=== PATIENT | female | born 1965 | race Caucasian/White ===

== ENCOUNTER → 2019-08-18 | Emergency (ER) | payer MEDICAID, OTHER ==
[~2019-08-18] VITALS: Ht 172.7 cm; Wt 108.9 kg
[2019-08-18 14:02] VITALS: BP 146/90
== END | disposition home or self-care (01) ==
LOC: ER 13:52
DX: J40 Bronchitis, not specified as acute or chronic (principal); R51 Headache; I10 Essential (primary) hypertension
CPT/HCPCS: 36600; 71046; 82805

== ENCOUNTER 2023-10-10 03:57 | Inpatient (IN) | payer MEDICAID ==
[~2023-10-10] VITALS: Ht 170.2 cm; Wt 120.9 kg
[2023-10-10] MEDS: ACETAMINOPHEN 500 MG TAB PO ONE ×2 (04:26→18:53)
[2023-10-10] MEDS: ONDANSETRON HCL 4 MG/2 ML VIAL IV ONE (05:14)
[2023-10-10 06:28] VITALS: PULSE 89; RESP 16; O2SAT 92
[2023-10-10 07:18] LABS: COVID19 ANTIGEN SOFIA FIA NEGATIVE (NEGATIVE); Rapid Influenza A Negative (Negative); Rapid Influenza B Negative (Negative)
[2023-10-10 08:20] LABS: Urine Bacteria None Seen /hpf (None Seen)
[2023-10-10 08:32] LABS: Urine Blood 2+ /uL (Negative); Urine Clarity Clear (Clear); Urine Color Yellow (Yellow); Urine Hyaline Cast FEW /lpf (0 - 2); Urine Mucus FEW (None Seen); Urine Protein, UAD 2+ (Negative); Urine Specific Gravity 1.036 (1.001-1.035); Urine Urobilinogen 2 mg/dL (Negative); Urine WBC 4 /hpf (0 - 5); Urine pH 6.5 (5.0-9.0)
[2023-10-10] MEDS: SODIUM CHLORIDE 0.9% 1,000 ML IVB ONE (11:17)
[2023-10-10 12:36] LABS: Basophils # (auto) 0 10 ^3/uL (0-0.2); Basophils % (auto) 0.3 % (0.0-2.0); Eosinophils # (auto) 0 10 ^3/uL (0-0.8); Hematocrit 40.3 % (36.0-46.0); Hemoglobin 13.9 g/dL (12.2-16.2); Lymphocytes # (auto) 0.6 10 ^3/uL (0.4-5.4); Lymphocytes % (auto) 3.5 % (10.0-50.0); Mean Corpuscular Hemoglobin 32.3 pg (28.0-32.0); Mean Corpuscular Hgb Conc. 34.4 g/dL (32.0-36.0); Mean Corpuscular Volume 93.9 fL (80.0-100.0); Monocytes # (auto) 0.8 10 ^3/uL (0-1.3); Monocytes % (auto) 4.6 % (0.0-12.0); Neutrophils # (auto) 16.1 10 ^3/uL (1.6-8.6); Neutrophils % (auto) 91.6 % (37.0-80.0); Red Blood Cells 4.28 10^6/uL (4.0-5.20); Red Cell Distribution Width 13.5 % (11.8-14.3); White Blood Cell 17.6 10^3/uL (4.4-10.8)
[2023-10-10 12:45] LABS: Chloride 101 mmol/L (98-107); Potassium 3.6 mmol/L (3.5-5.1); Sodium 133 mmol/L (136-145)
[2023-10-10 12:46] LABS: Anion Gap 6 (5-15); Carbon Dioxide 26 mmol/L (20-30)
[2023-10-10 12:47] LABS: Calcium 9.2 mg/dL (8.7-10.4)
[2023-10-10 12:51] LABS: Glucose 114 mg/dL (74-106)
[2023-10-10 12:52] LABS: BUN/Creatinine Ratio 10.3 (10.0-20.0); Blood Urea Nitrogen 8 mg/dL (9-23); Lipase 27 U/L (12-53); Magnesium 1.2 mg/dL (1.6-2.6)
[2023-10-10] MEDS: KETOROLAC TROMETH 30 MG/ML 1ML VIAL IV ONE (13:38)
[2023-10-10] MEDS: MAGNESIUM SULFATE 1GM/100ML 100 ML IV SCH (17:15)
[2023-10-10] MEDS ORDERED: BISM262C44 PO (17:46)
[2023-10-10] MEDS ORDERED: METO-281 PO (17:46)
[2023-10-10 19:30] VITALS: PULSE 88; RESP 22; O2SAT 93
[2023-10-10] MEDS: IPRATROPIUM BROM 0.5 MG/2.5ML INH SOL NEB ONE (20:45)
[2023-10-10] MEDS: ALBUTEROL SULF 2.5 MG/0.5ML(0.5%) NEB SOLN NEB ONE (20:45)
[2023-10-10] MEDS: ALBUTEROL SULF 2.5 MG/0.5ML(0.5%) NEB SOLN ONE (21:03)
[2023-10-10] MEDS: IPRATROPIUM BROM 0.5 MG/2.5ML INH SOL ONE (21:03)
[2023-10-10] MEDS: AZITHROMYCIN 500MG/ 250ML 250 ML IV ONE (22:01)
[2023-10-10] MEDS: PIPERACILLIN-TAZOB 3.375GM 100 ML IV ONE (22:01)
[2023-10-11] VITALS (37 sets, daily range): BP systolic 87–124; BP diastolic 36–71; PULSE 70–107; RESP 15–33; TEMP 98–101.2; O2SAT 75–100
[2023-10-11] MEDS: MELATONIN 5 MG TAB PO PRN (01:28)
[2023-10-11] MEDS: ONDANSETRON HCL 4 MG/2 ML VIAL IV PRN (01:28)
[2023-10-11] MEDS: SODIUM CHLORIDE 0.9% 1,000 ML IV SCH ×2 (01:29→06:04)
[2023-10-11] MEDS: HYDROcodone-ACET 5/325MG TAB PO PRN (01:53)
[2023-10-11 02:41] LABS: Base Excess 0.1 mmol/L (-2.0-2.0)
[2023-10-11] MEDS: ACETAMINOPHEN 325 MG TAB PO PRN (03:23)
[2023-10-11 05:29] LABS: Hematocrit 36.8 % (36.0-46.0); Hemoglobin 12.4 g/dL (12.2-16.2); Mean Corpuscular Hemoglobin 31.4 pg (28.0-32.0); Mean Corpuscular Hgb Conc. 33.8 g/dL (32.0-36.0); Red Blood Cells 3.95 10^6/uL (4.0-5.20); Red Cell Distribution Width 13.3 % (11.8-14.3); White Blood Cell 18.4 10^3/uL (4.4-10.8)
[2023-10-11 05:33] LABS: Chloride 99 mmol/L (98-107); Sodium 130 mmol/L (136-145)
[2023-10-11 05:34] LABS: Anion Gap 8 (5-15); Basophils % (manual) 0 (0.0-2.0); Blast Cells 0; Calcium 8.8 mg/dL (8.7-10.4); Carbon Dioxide 23 mmol/L (20-30); Eosinophils % (manual) 0 (0-7); Metamyelocytes % 0; Myelocytes % 0; Promyelocytes % 0; Reactive Lymphocytes 0
[2023-10-11 05:39] LABS: BUN/Creatinine Ratio 15.3 (10.0-20.0); Blood Urea Nitrogen 15 mg/dL (9-23); Glucose 104 mg/dL (74-106)
[2023-10-11 05:40] LABS: Magnesium 1.4 mg/dL (1.6-2.6)
[2023-10-11] MEDS: IOHEXOL 350 MG/ML 100ML IJ ONE (05:41)
[2023-10-11] MEDS ORDERED: IPRATROPIUM BROM 0.5 MG/2.5ML INH SOL NEB SCH (06:00)
[2023-10-11 06:05] LABS: Band Neutrophils % (manual) 23; Lymphocytes % (manual) 2 (10.0-50.0); Monocytes % (manual) 2 (0-12); Platelet Estimate Adequate; RBC Morphology Normal
[2023-10-11] MEDS: MAGNESIUM SULFATE 1GM/100ML 100 ML IV SCH (06:19)
[2023-10-11] MEDS: ALBUTEROL SULF 2.5 MG/0.5ML(0.5%) NEB SOLN NEB SCH (06:27)
[2023-10-11] MEDS: IPRATROPIUM BROM 0.5 MG/2.5ML INH SOL NEB SCH (06:28)
[2023-10-11] MEDS: POTASSIUM CHL 20MEQ/100ML 100 ML IV SCH (06:34)
[2023-10-11 08:57] LABS: Base Excess -0.9 mmol/L (-2.0-2.0)
[2023-10-11] MEDS: ENOXAPARIN SOD 40 MG/0.4 ML SYRINGE SC SCH (09:44)
[2023-10-11] MEDS: PANTOPRAZOLE 40 MG/10 ML VIAL INJ IV SCH (09:46)
[2023-10-11] MEDS: cefTRIAXone 1GM/50ML D5W 50 ML IV SCH (09:46)
[2023-10-11 10:54] LABS: Amphetamine Screen, Urine Neg (NEGATIVE); Barbiturate Scree,Urine Neg (NEGATIVE); Benzodiazephine Screen, Urine Neg (NEGATIVE)
[2023-10-11 10:56] LABS: Cannabinoid Screen, Urine Neg (NEGATIVE); Cocaine Screen, Urine Neg (NEGATIVE); Opiate Scree,Urine Neg (NEGATIVE); Phencyclidine Screen, Urine Neg (NEGATIVE)
[2023-10-11] MEDS ORDERED: VANCOMYCIN PER PHARMACY 0 MG IV SCH (11:15)
[2023-10-11] MEDS: PIPERACILLIN-TAZOB 3.375GM 100 ML IV SCH ×2 (11:44→21:07)
[2023-10-11] MEDS: MAGNESIUM OXIDE 400 MG TAB PO ONE (11:44)
[2023-10-11] MEDS: VANCOMYCIN 1GM/200ML 200 ML IV ONE (11:44)
[2023-10-11] MEDS ORDERED: LEVO50TA7 PO (15:12)
[2023-10-11] MEDS ORDERED: CYCL-839 PO (15:12)
[2023-10-11] MEDS ORDERED: LOSA100T33 PO (15:12)
[2023-10-11] MEDS ORDERED: GABA-1250 PO (15:12)
[2023-10-11] MEDS: VANCOMYCIN 1GM/200ML 200 ML IV SCH (18:20)
[2023-10-11] MEDS: NOREPINEPHRINE 8 MG/250ML KIT 250 ML IV SCH (19:30)
[2023-10-12] VITALS (35 sets, daily range): BP systolic 89–128; BP diastolic 54–75; PULSE 68–90; RESP 11–93; TEMP 98.5–99.9; O2SAT 22–98
[2023-10-12 04:25] LABS: Basophils # (auto) 0 10 ^3/uL (0-0.2); Basophils % (auto) 0.3 % (0.0-2.0); Eosinophils # (auto) 0.4 10 ^3/uL (0-0.8); Eosinophils % (auto) 3.5 % (0.0-7.0); Hematocrit 35.7 % (36.0-46.0); Hemoglobin 12.2 g/dL (12.2-16.2); Lymphocytes # (auto) 0.3 10 ^3/uL (0.4-5.4); Lymphocytes % (auto) 2.9 % (10.0-50.0); Mean Corpuscular Hemoglobin 32.5 pg (28.0-32.0); Mean Corpuscular Hgb Conc. 34.2 g/dL (32.0-36.0); Mean Corpuscular Volume 94.8 fL (80.0-100.0); Monocytes # (auto) 0.4 10 ^3/uL (0-1.3); Neutrophils # (auto) 9.9 10 ^3/uL (1.6-8.6); Neutrophils % (auto) 89.3 % (37.0-80.0); Red Blood Cells 3.76 10^6/uL (4.0-5.20); Red Cell Distribution Width 13.5 % (11.8-14.3); White Blood Cell 11.1 10^3/uL (4.4-10.8)
[2023-10-12 04:44] LABS: Alanine Aminotransferase 53 U/L (7-40); Albumin 3.5 g/dL (3.2-4.8); Alkaline Phosphatase 62 U/L (46-116); Anion Gap 5 (5-15); Aspartate Aminotransferase 42 U/L (13-40); BUN/Creatinine Ratio 18.4 (10.0-20.0); Blood Urea Nitrogen 14 mg/dL (9-23); Calcium 9.2 mg/dL (8.7-10.4); Carbon Dioxide 27 mmol/L (20-30); Chloride 104 mmol/L (98-107); Glucose 105 mg/dL (74-106); Magnesium 2.4 mg/dL (1.6-2.6); Potassium 4.3 mmol/L (3.5-5.1)
[2023-10-12 04:45] LABS: Bilirubin, Total 0.6 mg/dL (0.2-1.0); Total Protein 6.1 g/dL (5.7-8.2)
[2023-10-12 04:47] LABS: Sodium 136 mmol/L (136-145)
[2023-10-12] MEDS: LEVOTHYROXINE SODIUM 50 MCG TAB PO SCH (05:33)
[2023-10-12] MEDS: CYCLOBENZAPRINE HCL 10 MG TAB PO SCH (08:03)
[2023-10-12] MEDS: FUROSEMIDE 40 MG/4 ML VIAL IV ONE (09:40)
[2023-10-12] MEDS: GABAPENTIN 300 MG CAP PO SCH (21:46)
[2023-10-13] VITALS (39 sets, daily range): BP systolic 71–133; BP diastolic 58–80; PULSE 62–83; RESP 14–94; TEMP 97.9–98.9; O2SAT 21–97
[2023-10-13 04:12] LABS: Basophils # (auto) 0 10 ^3/uL (0-0.2); Basophils % (auto) 0.4 % (0.0-2.0); Eosinophils # (auto) 0.5 10 ^3/uL (0-0.8); Eosinophils % (auto) 5.1 % (0.0-7.0); Hematocrit 35.7 % (36.0-46.0); Lymphocytes # (auto) 0.7 10 ^3/uL (0.4-5.4); Lymphocytes % (auto) 7.5 % (10.0-50.0); Mean Corpuscular Hgb Conc. 33.7 g/dL (32.0-36.0); Mean Corpuscular Volume 94.9 fL (80.0-100.0); Monocytes # (auto) 0.7 10 ^3/uL (0-1.3); Neutrophils # (auto) 7.6 10 ^3/uL (1.6-8.6); Red Blood Cells 3.76 10^6/uL (4.0-5.20); Red Cell Distribution Width 13.7 % (11.8-14.3); White Blood Cell 9.5 10^3/uL (4.4-10.8)
[2023-10-13 04:40] LABS: Alanine Aminotransferase 70 U/L (7-40); Albumin 3.5 g/dL (3.2-4.8); Alkaline Phosphatase 96 U/L (46-116); Anion Gap 4 (5-15); Aspartate Aminotransferase 49 U/L (13-40); BUN/Creatinine Ratio 13.9 (10.0-20.0); Bilirubin, Total 0.7 mg/dL (0.2-1.0); Blood Urea Nitrogen 11 mg/dL (9-23); Calcium 9.1 mg/dL (8.5-10.1); Carbon Dioxide 28 mmol/L (20-30); Chloride 104 mmol/L (98-107); Glucose 89 mg/dL (74-106); Potassium 3.5 mmol/L (3.5-5.1); Sodium 136 mmol/L (136-145)
[2023-10-13] MEDS: FUROSEMIDE 40 MG/4 ML VIAL IV ONE (10:46)
[2023-10-14] VITALS (38 sets, daily range): BP systolic 101–136; BP diastolic 62–86; PULSE 57–89; RESP 14–24; TEMP 97.7–98.3; O2SAT 92–100
[2023-10-14 04:05] LABS: Basophils # (auto) 0.1 10 ^3/uL (0-0.2); Basophils % (auto) 0.7 % (0.0-2.0); Eosinophils # (auto) 0.5 10 ^3/uL (0-0.8); Eosinophils % (auto) 5.2 % (0.0-7.0); Hematocrit 38.6 % (36.0-46.0); Hemoglobin 13.2 g/dL (12.2-16.2); Lymphocytes # (auto) 1.2 10 ^3/uL (0.4-5.4); Lymphocytes % (auto) 13.8 % (10.0-50.0); Mean Corpuscular Hgb Conc. 34.2 g/dL (32.0-36.0); Mean Corpuscular Volume 93.6 fL (80.0-100.0); Monocytes # (auto) 0.8 10 ^3/uL (0-1.3); Monocytes % (auto) 8.9 % (0.0-12.0); Neutrophils # (auto) 6.1 10 ^3/uL (1.6-8.6); Neutrophils % (auto) 71.4 % (37.0-80.0); Nucleated Red Blood Cells % 0.1 %; Red Blood Cells 4.13 10^6/uL (4.0-5.20); Red Cell Distribution Width 13.5 % (11.8-14.3); White Blood Cell 8.6 10^3/uL (4.4-10.8)
[2023-10-14 04:35] LABS: Alanine Aminotransferase 72 U/L (7-40); Albumin 3.7 g/dL (3.2-4.8); Alkaline Phosphatase 131 U/L (46-116); Anion Gap 7 (5-15); Aspartate Aminotransferase 51 U/L (13-40); BUN/Creatinine Ratio 14.3 (10.0-20.0); Blood Urea Nitrogen 10 mg/dL (9-23); Calcium 9.7 mg/dL (8.7-10.4); Carbon Dioxide 27 mmol/L (20-30); Chloride 102 mmol/L (98-107); Glucose 81 mg/dL (74-106); Potassium 3.3 mmol/L (3.5-5.1); Sodium 136 mmol/L (136-145)
[2023-10-14 04:36] LABS: Bilirubin, Total 0.7 mg/dL (0.2-1.0); Total Protein 6.6 g/dL (5.7-8.2)
[2023-10-14] MEDS: POTASSIUM CHL 20 Meq TABLET PO ONE (13:35)
[2023-10-15] VITALS (23 sets, daily range): BP systolic 119–153; BP diastolic 70–79; PULSE 60–78; RESP 16–21; TEMP 94.4–98.6; O2SAT 92–100
[2023-10-16] VITALS (21 sets, daily range): BP systolic 135–157; BP diastolic 68–87; PULSE 65–88; RESP 17–20; TEMP 97.6–98.7; O2SAT 95–100
[2023-10-16] MEDS: VANCOMYCIN 1GM/200ML 200 ML IV SCH (10:12)
[2023-10-16] MEDS: GABAPENTIN 300 MG CAP PO SCH (18:10)
[2023-10-16] MEDS: CYCLOBENZAPRINE HCL 10 MG TAB PO SCH (18:11)
[2023-10-17] VITALS (20 sets, daily range): BP systolic 130–148; BP diastolic 71–87; PULSE 62–78; RESP 18–20; TEMP 97.5–98.5; O2SAT 92–100
[2023-10-17 07:46] LABS: Basophils # (auto) 0.1 10 ^3/uL (0-0.2); Basophils % (auto) 0.8 % (0.0-2.0); Eosinophils # (auto) 0.4 10 ^3/uL (0-0.8); Eosinophils % (auto) 4.4 % (0.0-7.0); Hematocrit 35.5 % (36.0-46.0); Hemoglobin 11.8 g/dL (12.2-16.2); Lymphocytes # (auto) 1.8 10 ^3/uL (0.4-5.4); Lymphocytes % (auto) 18.8 % (10.0-50.0); Mean Corpuscular Hemoglobin 32.4 pg (28.0-32.0); Mean Corpuscular Hgb Conc. 33.4 g/dL (32.0-36.0); Mean Corpuscular Volume 96.9 fL (80.0-100.0); Monocytes # (auto) 0.6 10 ^3/uL (0-1.3); Neutrophils # (auto) 6.7 10 ^3/uL (1.6-8.6); Red Blood Cells 3.66 10^6/uL (4.0-5.20); Red Cell Distribution Width 13.9 % (11.8-14.3); White Blood Cell 9.5 10^3/uL (4.4-10.8)
[2023-10-17] MEDS: VANCOMYCIN 1GM/200ML 200 ML IV SCH (16:35)
[2023-10-18] VITALS (12 sets, daily range): BP systolic 127–150; BP diastolic 75–82; PULSE 66–77; RESP 16–20; TEMP 97.7–98.1; O2SAT 93–98
[2023-10-18] MEDS ORDERED: DOXY-286 PO (14:41)
== END 2023-10-18 19:45 | disposition home health service (06) | DRG 720 ==
LOC: EDBD 03:57 → ER 03:57 → TELE 10-11 01:09 → ICU WEST 10-11 09:16 → TELE-WESTW 10-14 18:26
PROVIDERS: ADMIT Nurse Practitioner Family; ATTEND Nurse Practitioner Family
PROC: 5A0935A Assistance with Respiratory Ventilation, Less than 24 Consecutive Hours, High Flow/Velocity Cannula (ICD-10-PCS; 2023-10-11)
PROC: 5A0945A Assistance with Respiratory Ventilation, 24-96 Consecutive Hours, High Flow/Velocity Cannula (ICD-10-PCS; principal; 2023-10-12)
PROC: 5A09357 Assistance with Respiratory Ventilation, Less than 24 Consecutive Hours, Continuous Positive Airway Pressure (ICD-10-PCS; 2023-10-14)
DX: A41.9 Sepsis, unspecified organism (principal); J96.01 Acute respiratory failure with hypoxia; J15.69 Pneumonia due to other Gram-negative bacteria; J15.9 Unspecified bacterial pneumonia; E87.1 Hypo-osmolality and hyponatremia; E66.2 Morbid (severe) obesity with alveolar hypoventilation; E86.0 Dehydration; E86.1 Hypovolemia; Z20.822 Contact with and (suspected) exposure to COVID-19; K52.9 Noninfective gastroenteritis and colitis, unspecified; E83.42 Hypomagnesemia; I10 Essential (primary) hypertension; E87.6 Hypokalemia; G89.4 Chronic pain syndrome; E03.9 Hypothyroidism, unspecified; Z68.41 Body mass index [BMI] 40.0-44.9, adult; Z79.899 Other long term (current) drug therapy
CPT/HCPCS: 36415; 36600; 71045; 71260; 74177; 80048; 80053; 80202; 80307; 81001; 82565; 82805; 83605; 83690; 83735; 83880; 85007; 85025; 85027; 85379; 87040; 87077; 87086; 87186; 87426; 87804; 93306; 93970; 94640; 94660; 96365; 96366; 96367; 96368; 96372; 96375; 96376; 97110; 97116; 97163; 97530; C9113; G0378; J1885; J2405; J2543; J3480

== ENCOUNTER 2024-06-27 09:37 | Inpatient (IN) | payer MEDICAID ==
[~2024-06-27] VITALS: Ht 170.2 cm; Wt 113.0 kg
[~2024-06-27 09:37] MED LIST: BISM262C44 PO; CYCL-839 PO; DOXY-286 PO; GABA-1250 PO; LEVO50TA7 PO; LOSA100T33 PO; METO-281 PO
--- NOTE | 2024-06-27 10:25 | ED.PDOC ---
GI ASSESSMENT HPI Comments A 58 YEAR OLD FEMALE PRESENTS TO THE ED WITH COMPLAINT OF RIGHT-SIDED ABDOMINAL PAIN RADIATES TO LOWER BACK. PATIENT STATES SHE HAS BEEN EXPERIENCING RIGHT- SIDED ABDOMINAL PAIN THAT OCCASIONALLY RADIATES TO HER EPIGASTRIC REGION AND HER LOWER BACK FOR THE PAST 2 DAYS. PATIENT REPORTS SHE HAS ALSO HAD NAUSEA AND DIARRHEA WITH HER ABDOMINAL PAIN. PATIENT DENIES DYSURIA, HEMATURIA, FLANK PAIN, FEVER, CHILLS, SHORTNESS OF BREATH, CHEST PAIN, VOMITING, HEADACHE, OR OTHER COMPLAINTS. NO OTHER SYMPTOMS OR MODIFYING FACTORS AT THIS TIME. PATIENT IS ALERT, ORIENTED X 4, AND HAS STEADY GAIT. NO OTHER SYMPTOMS REPORTED AT THIS TIME OF CARE. Chief Complaint: Abdominal Pain Time Seen by MD: 09:55 Primary Care Provider: Dr. Leo Reviewed Notes: Nurses Notes, Medications, Allergies Allergies: Coded Allergies: NO KNOWN ALLERGIES (Unverified , 08/18/19) Home Meds Active Scripts Doxycycline Hyclate (DOXYCYCLINE HYCLATE) 100 Mg Tab, 100 MG PO BID, #6 TAB Prov:ALIYA MELENDEZ MD 10/18/23 Bismuth Subsalicylate (PEPTO-BISMOL TO-GO) 262 Mg Chw, 262 MG PO QID for 5 Days, #20 TAB.CHEW Prov:MELO SIDHU MD 10/10/23 Metoclopramide Hcl (Reglan) 10 Mg Tab, 10 MG PO BID for 5 Days, #10 TAB Prov:MELO SIDHU MD 10/10/23 Reported Medications Gabapentin (Gabapentin) 300 Mg Cap, 300 MG PO DAILY@BREAKFAST for 30 Days, MG 10/11/23 Losartan Potassium & Hydrochlo (Losartan Potassium/Hydroc) 1 Tab Tab, 1 TAB PO DAILY, #30 TAB 5 Refills 10/11/23 Cyclobenzaprine Hcl (Cyclobenzaprine Hcl) 10 Mg Tab, 5 MG PO DAILY for 30 Days, MG 10/11/23 Levothyroxine Sodium (Levothyroxine Sodium) 50 Mcg Tab, 50 MCG PO QAM for 30 Days, MCG 10/11/23 Information Source: Patient Mode of Arrival: Ambulatory Timing: Days Duration: Since onset, Days Prehospital treatment: None Quality: Cramping, Sharp Vomitus: None Stool: Loose, Watery Severity: Moderate Recent: None Recent Hx of: None Pain Location: Other (RIGHT-SIDED ABDOMINAL PAIN) Modifying Factors: Nothing Associated sign and symptoms: Nausea, Abdominal Pain Past Medical History PAST MEDICAL HISTORY: High Lipids, HTN, Thyroid Surgical History: Denies all surgeries BROADCAST MAINTENANCE TECHNICIAN History: No Pertinent BROADCAST MAINTENANCE TECHNICIAN History Family History Family History: Reviewed,noncontributory to illness Social History Smoker: Non-Smoker Alcohol: Denies ETOH Use Drugs: Denies Drug Use Lives In: Home Constitutional: denies: chills, diaphoresis, fatigue, fever, malaise, sweats, weakness, others EENTM: denies: blurred vision, double vision, ear bleeding, ear discharge, ear drainage, ear pain, ear ringing, eye pain, eye redness, hearing loss, mouth pain, mouth swelling, nasal discharge, nose bleeding, nose congestion, nose pain, photophobia, tearing, throat pain, throat swelling, voice changes, others Respiratory: denies: cough, hemoptysis, orthopnea, SOB at rest, shortness of breath, SOB with excertion, stridor, wheezing, others Cardiovascular: denies: chest pain, dizzy spells, diaphoresis, Dyspnea on exertion, edema, irregular heart beat, left arm pain, lightheadedness, palpitations, PND, syncope, others Gastrointestinal: reports: abdominal pain, diarrhea (ONCE ), nausea; denies: abdomen distended, blood streaked bowels, constipated, dysphagia, difficulty swallowing, hematemesis, melena, poor appetite, poor fluid intake, rectal bleeding, rectal pain, vomiting, others Genitourinary: denies: abnormal vagina bleeding, burning, dyspareunia, dysuria, flank pain, frequency, hematuria, incontinence, pain, , vagina discharge, urgency, others Neurological: denies: dizziness, fainting, headache, left sided numbness, left sided weakness, numbness, paresthesia, pre-existing deficit, right sided numbness, right sided weakness, seizure, speech problems, tingling, tremors, weakness, others Musculoskeletal: reports: back pain (LOWER BACK PAIN); denies: gout, joint pain, joint swelling, muscle pain, muscle stiffness, neck pain, others Integumetry: denies: bruises, change in color, change in hair/nails, dryness, laceration, lesions, lumps, rash, wounds, others Allergic/Immunocompromised: denies: Difficulty Healing, Frequent Infections, Hives, Itching, others Hematologic/Lymphatic: denies: anemia, blood clots, easy bleeding, easy bruising, swollen glands, others Endocrine: denies: excessive hunger, excessive sweating, excessive thirst, excessive urination, flushing, intolerance to cold, intolerance to heat, unexplained weight gain, unexplained weight loss, others Psychiatric: denies: anxiety, bipolar disorder, depression, hopeless, panic disorder, schizophrenia, sleepless, suicidal, others All Other Systems: Reviewed and Negative Physical Exam General Appearance: No Apparent Distress, Normal HEENT: Normal ENT Inspection, PERRL/EOMI, Pharynx Normal, TMs Normal Neck: Full Range of Motion, Non-Tender, Normal, Normal Inspection Respiratory: Chest Non-Tender, Lungs Clear, No Accessory Muscle Use, No Respiratory Distress, Normal Breath Sounds Cardiovascular: No Edema, No JVD, No Murmur, No Gallop, Normal Peripheral Pulses, Regular Rate/Rhythm Breast Exam: Deferred Gastrointestinal: Epigastric (MILD TENDERNESS EPIGASTRIC, NO GUARDING AND REBOUND TENDERNESS. ), Guarding, No Organomegaly, No Pulsatile Mass, Normal Bowel Sounds, Rebound, RLQ, Soft, Tenderness (RIGHT LOWER ABD WITH GUARDING AND REBOUND TENDERNESS, +OBTURATOR SIGN. ) Genitalia: Deferred Pelvic: Normal External Exam Rectal: Deferred Extremities: No calf tenderness, Normal capillary refill, Normal inspection, Normal range of motion, Non-tender, No pedal edema Musculoskeletal : Apperance: Normal Neurologic: Alert, insurance marketing specialist II-XII nml as Tested, No Motor Deficits, Normal Affect, Normal Mood, No Sensory Deficits Cerebellar Function: Normal Reflexes: Normal Skin: Dry, Normal Color, Warm Peripheral Pulses: 2+ carotid (R), 2+ carotid (L) Lymphatic: No Adenopathy Was a procedure done? Was a procedure done?: No GI differential Dx Differential Diagnosis: Appendicitis, Bowel Obstruction, Diverticular disease, Gastroenteritis, Hepatitis, Inflammatory BD, Ischemic Bowel, Ovarian cy st/torsion, UTI, Kidney Stone X-Ray, Labs, Meds, VS Vital Signs Date Time Temp Pulse Resp B/P (MAP) Pulse Ox O2 Delivery O2 Flow Rate FiO2 06/27/24 16:27 87 17 132/68 (89) 93 06/27/24 12:33 74 16 114/64 06/27/24 11:17 94 18 125/72 06/27/24 10:12 116 16 96 Room Air 06/27/24 10:12 98.3 116 16 147/75 (99) 96 98.3 06/27/24 09:53 102 06/27/24 09:50 98.3 116 16 147/75 (99) 96 Lab Test 06/27/24 10:41 06/27/24 10:25 Range/Units Urine Color Yellow Yellow Urine Clarity Clear Clear Urine pH 6.0 5.0-9.0 Urine Specific [place] 1.019 1.001-1.035 Urine Protein Trace H Negative Urine Ketones Negative Negative Urine Blood 2+ H Negative /uL Urine Nitrite Negative Negative Urine Bilirubin Negative Negative Urine Urobilinogen Normal Negative mg/dL Urine Leukocyte Esterase Trace Negative /uL Urine RBC 3 0 - 4 /hpf Urine Microscopic WBC 5 0-5 /HPF Urine Squamous Epithelial Cells Few <5 /hpf Urine Bacteria None seen None Seen /hpf Urine Glucose Normal Normal mg/dL White Blood Count 17.0 H 4.4-10.8 10^3/uL Red Blood Count 4.54 4.0-5.20 10^6/uL Hemoglobin 13.8 12.2-16.2 g/dL Hematocrit 41.2 36.0-46.0 % Mean Corpuscular Volume 90.8 80.0-100.0 fL Mean Corpuscular Hemoglobin 30.3 28.0-32.0 pg Mean Corpuscular Hemoglobin Concent 33.4 32.0-36.0 g/dL Red Cell Distribution Width 14.2 11.8-14.3 % Platelet Count 260 140-450 10^3/uL Mean Platelet Volume 9.6 6.9-10.8 fL Neutrophils (%) (Auto) 81.5 H 37.0-80.0 % Lymphocytes (%) (Auto) 11.0 10.0-50.0 % Monocytes (%) (Auto) 6.6 0.0-12.0 % Eosinophils (%) (Auto) 0.5 0.0-7.0 % Basophils (%) (Auto) 0.4 0.0-2.0 % Neutrophils # (Auto) 13.9 H 1.6-8.6 10 ^3/uL Lymphocytes # (Auto) 1.9 0.4-5.4 10 ^3/uL Monocytes # (Auto) 1.1 0-1.3 10 ^3/uL Eosinophils # (Auto) 0.1 0-0.8 10 ^3/uL Basophils # (Auto) 0.1 0-0.2 10 ^3/uL Nucleated Red Blood Cells 0.0 % Sodium Level 137 136-145 mmol/L Potassium Level 4.1 3.5-5.1 mmol/L Chloride Level 101 98-107 mmol/L Carbon Dioxide Level 27 20-31 mmol/L Anion Gap 9 5-15 Blood Urea Nitrogen 10 9-23 mg/dL Creatinine 0.84 0.550-1.02 mg/dL Glomerular Filtration Rate Calc 80 >90 mL/min BUN/Creatinine Ratio 11.9 10.0-20.0 Serum Glucose 102 74-106 mg/dL Calcium Level 10.4 8.7-10.4 mg/dL Total Bilirubin 0.7 0.2-1.0 mg/dL Aspartate Amino Transferase (AST) 17 13-40 U/L Alanine Aminotransferase (ALT) 27 7-40 U/L Alkaline Phosphatase 74 46-116 U/L Total Protein 7.6 5.7-8.2 g/dL Albumin 4.8 3.2-4.8 g/dL Lipase 38 12-53 U/L Current Medications Medications (Trade) Dose Ordered Sig/Sidra Route Start Time Stop Time Status Last Admin Piperacillin Sod/ Tazobactam Sod 100 ml @ 100 mls/hr ONCE ONCE IV 06/27/24 11:00 06/27/24 11:59 DC 06/27/24 11:17 Sodium Chloride 1,000 ml @ 1,000 mls/hr Q1H ONCE IV 06/27/24 11:00 06/27/24 11:59 DC 06/27/24 11:06 Ondansetron HCl (Zofran) 4 mg ONCE ONCE IV 06/27/24 11:00 06/27/24 11:02 DC 06/27/24 11:16 Morphine Sulfate 4 mg ONCE ONCE IV 06/27/24 11:00 06/27/24 11:02 DC 06/27/24 11:17 Sodium Chloride 1,000 ml @ 125 mls/hr Q8H ONCE IV 06/27/24 16:30 06/28/24 00:29 DC 06/27/24 16:48 Exam: CT CT AB PEL WO CON-NO ORAL OR IV History: RIGHT SIDE ABD PAIN WITH NAUSEA Comparison Study: None Technique: Multidetector spiral CT of the abdomen and pelvis was performed from lung bases to pubic symphysis. Imaging was performed without IV contrast. Axial, coronal and sagittal multiplanar reformats were obtained from the axial data set by the technologist. Radiation dose : Abdomen/Pelvis: CTDIvol 25 mGy, DLP 1344 mGy*cm. Findings: Evaluation of solid organs is limited due to lack of intravenous contrast use. Lung Bases: No acute or significant lung base finding. Normal heart size. No pleural or pericardial effusion. Liver: The liver is normal in size. No focal lesions. Gallbladder and biliary Tree: Unremarkable Spleen: Unremarkable Pancreas: The pancreas is grossly normal in appearance. Adrenal Glands: Unremarkable Kidneys: Kidneys are grossly normal without calculi or hydronephrosis. Bladder: Grossly unremarkable for degree of distention. Bowel: The stomach is grossly normal in appearance. Small bowel and colon are normal in caliber and distribution. Appendix is dilated with an appendicolith. Periappendiceal stranding noted. No loculated abscess. Ascites: Absent Lymphadenopathy: No mesenteric, retroperitoneal or periportal lymphadenopathy. Abdominal wall and Mesentery: Unremarkable. Vasculature: The visualized abdominal aorta is normal in size and caliber. Evaluation of abdominal and pelvic vessels is limited due to lack of intravenous contrast. Pelvic Organs: The uterus is surgically absent. Musculoskeletal: No aggressive focal bony lesions, acute fractures or dislo cation. IMPRESSION: 1. Acute appendicitis. No evidence of rupture. No abscess formation. Surgical evaluation is recommended. Critical Result: Acute appendicitis Findings discussed with CONSTANTINO GAONA at 06/27/2024 10:54 AM, and acknowledged receipt and understanding of the findings. Radiation optimization: All CT scans at this facility use at least one of these dose optimization techniques: Automated exposure control mA and/or kV adjustment per patient size (includes targeted exams where dose is matched to clinical indication) or iterative reconstruction. HS:Y ATED BY: CARLOS OBRIEN MD DICTATED DATE/TIME: 06/27/24 105 SIGNED BY: CARLOS OBRIEN MD SIGNED DATE/TIME: 06/27/241058 CC: X-Ray, Labs, Meds, VS Comment EXTERNAL MEDICAL RECORDS REVIEWED: [NONE] INDEPENDENT HISTORIANS: [NONE] SOCIAL DETERMINANTS OF HEALTH: [NONE] LABS ORDERED: CBC, BMP, UA, LIPASE REVIEWED AND INTERPRETED RESULTS: WBC 17.0 IMAGING ORDERED: CT ABD/PEL TREATMENTS ORDERED: NS 1 L IV, ZOFRAN 4 MG IV, ZOSYN 3.375 G IV, MORPHINE 4 MG IV, MORPHINE 4MG IV AND ZOFRAN 4MG IV PROCEDURES PERFORMED: NONE CRITICAL CARE TIME: NONE I HAVE DISCUSSED THE PATIENT WITH THE ATTENDING PHYSICIAN DR. ALVES AND HE AGREES WITH THE PATIENT'S PLAN OF CARE. UPON MY PHYSICAL EXAMINATION, THE PATIENT HAD GUARDING NOTED UPON PALPATION TO HER RIGHT LOWER QUADRANT OF HER ABDOMEN AND WAS OBTURATOR SIGN POSITIVE, BUT HAD NO REBOUND TENDERNESS NOTED UPON PALPATION. MY DIFFERENTIAL DIAGNOSIS INCLUDES, APPENDICITIS, KIDNEY STONE, MUSCLE STRAIN, UTI, ACUTE CYSTITIS, DEHYDRATION, ELECTROLYTE IMBALANCE, DIVERTICULITIS, COLITIS, MESENTERIC ADENITIS. PATIENT WAS MEDICATED HERE IN THE ED WITH 1 L NORMAL SALINE IV, ZOFRAN 4 MG IV, ZOSYN 3.375 G IV, AND MORPHINE [address] SCAN OF THE PATIENT'S ABDOMEN AND PELVIS WAS DONE WHICH REVEALED ACUTE APPENDICITIS WITH AN APPENDICOLITH, BUT NO OTHER FINDINGS. DUE TO THE PATIENT'S CT SCAN RESULTS REVEALING ACUTE APPENDICITIS, I HAVE DETERMINED THE PATIENT NEEDS TO BE ADMITTED FOR FURTHER TREATMENT AND EVALUATION. THE ON-CALL GENERAL SURGEON WILL BE CONTACTED FOR CONSULT AND THE ON-CALL ADMITTING PHYSICIAN WILL BE CONTACTED FOR ADMISSION OF THIS PATIENT. 1215: DR. JUSTIN HAS COME TO SEE THE PATIENT AND AFTER DISCUSSING THE PATIENT'S LABS, IMAGING, AND CONDITION HE HAS ACCEPTED THE PATIENT FOR ADMISSION AT THIS TIME. 1220: I HAVE CALLED THE ON-CALL GENERAL SURGEON, DR. Angela LOZANO AND HE HAS SAID HE WILL COME TO SEE THE PATENT LATER TODAY. 1710: DR. Angela LOZANO HAS COME TO SEE THE PATIENT AND AFTER EVALUATING THE PATIENT HE HAS SAID THAT SINCE THE PATIENT IS NOT NPO AT THIS TIME HE CANNOT DO THE PATIENT'S SURGERY TONIGHT AND WILL DO THE PATIENT'S SURGERY TOMORROW MORNING. 1810: DR. JUSTIN HAS ADMITTED THE PATIENT TO TELEMETRY AT THIS TIME. Images Reviewed?: Images reviewed and evaluated by me Time of 1ST Reevaluation: 12:00 Reevaluation 1ST: Unchanged Consultation: Surgery (1220: I HAVE CALLED THE ON-CALL GENERAL SURGEON, DR. Angela LOZANO AND HE HAS SAID HE WILL COME TO SEE THE PATENT LATER TODAY.) Patient Education/Counseling: Diagnosis, Treatment Family Education/Counseling: Diagnosis, Treatment Departure 1 Departure Time of Disposition: 12:00 Impression: Primary Impression: Acute appendicitis Qualified Codes: K35.80 - Unspecified acute appendicitis Disposition: ADMITTED INPATIENT Admit to: Med Surg Condition: Serious Critical Care Note Critical Care Time?: No Stability Stability form required: Yes Unstable for transfer: Requires medication, ED Physician Assesment, Possible rapid decline I personally scribed for CONSTANTINO GAONA ([email or web address]) on 06/27/24 at 10:25. Electronically submitted by Javier Key ([employer]). I personally scribed for CONSTANTINO GAONA ([email or web address]) on 06/27/24 at 11:33. Electronically submitted by Javier Key ([employer]). I personally scribed for CONSTANTINO GAONA ([email or web address]) on 06/27/24 at 12:22. Electronically submitted by Javier Key ([employer] I personally scribed for CONSTANTINO GAONA ([email or web address]) on 06/27/24 at 17:17. Electronically submitted by Javier Key ([employer]). CONSTANTINO GAONA Jun 27, 2024 10:25
[2024-06-27 10:43] LABS: Urine Bacteria None Seen /hpf (None Seen)
[2024-06-27 10:55] LABS: Urine Blood 2+ /uL (Negative); Urine Clarity Clear (Clear); Urine Color Yellow (Yellow); Urine Protein, UAD TRACE (Negative); Urine Specific Gravity 1.019 (1.001-1.035); Urine Squamous Epithelial Cell FEW /hpf (<5); Urine Urobilinogen Normal (Negative); Urine WBC 5 /HPF (0-5)
[2024-06-27 10:56] LABS: Basophils # (auto) 0.1 10 ^3/uL (0-0.2); Basophils % (auto) 0.4 % (0.0-2.0); Eosinophils # (auto) 0.1 10 ^3/uL (0-0.8); Eosinophils % (auto) 0.5 % (0.0-7.0); Hematocrit 41.2 % (36.0-46.0); Hemoglobin 13.8 g/dL (12.2-16.2); Lymphocytes # (auto) 1.9 10 ^3/uL (0.4-5.4); Mean Corpuscular Hemoglobin 30.3 pg (28.0-32.0); Mean Corpuscular Hgb Conc. 33.4 g/dL (32.0-36.0); Mean Corpuscular Volume 90.8 fL (80.0-100.0); Monocytes # (auto) 1.1 10 ^3/uL (0-1.3); Monocytes % (auto) 6.6 % (0.0-12.0); Neutrophils # (auto) 13.9 10 ^3/uL (1.6-8.6); Neutrophils % (auto) 81.5 % (37.0-80.0); Platelet Count (auto) 260 10^3/uL (140-450); Red Blood Cells 4.54 10^6/uL (4.0-5.20); Red Cell Distribution Width 14.2 % (11.8-14.3)
--- NOTE | 2024-06-27 11:02 | DVH ---
Exam: CT CT AB PEL WO CON-NO ORAL OR IV History: RIGHT SIDE ABD PAIN WITH NAUSEA Comparison Study: None Technique: Multidetector spiral CT of the abdomen and pelvis was performed from lung bases to pubic symphysis. Imaging was performed without IV contrast. Axial, coronal and sagittal multiplanar reform ats were obtained from the axial data set by the technologist. Radiation dose : Abdomen/Pelvis: CTDIvol 25 mGy, DLP 1344 mGy*cm. Findings: Evaluation of solid organs is limited due to lack of intravenous contrast use. Lung Bases: No acute or significant lung base finding. Normal heart size. No pleural or pericardial effusion. Liver: The liver is normal in size. No focal lesions. Gallbladder and biliary Tree: Unremarkable Spleen: Unremarkable Pancreas: The pancreas is grossly normal in appearance. Adrenal Glands: Unremarkable Kidneys: Kidneys are grossly normal without calculi or hydronephrosis. Bladder: Grossly unremarkable for degree of distention. Bowel: The stomach is grossly normal in appearance. Small bowel and colon are normal in caliber and d istribution. Appendix is dilated with an appendicolith. Periappendiceal stranding noted. No loculate d abscess. Ascites: Absent Lymphadenopathy: No mesenteric, retroperitoneal or periportal lymphadenopathy. Abdominal wall and Mesentery: Unremarkable. Vasculature: The visualized abdominal aorta is normal in size and caliber. Evaluation of abdominal a nd pelvic vessels is limited due to lack of intravenous contrast. Pelvic Organs: The uterus is surgically absent. Musculoskeletal: No aggressive focal bony lesions, acute fractures or dislocation. IMPRESSION: 1. Acute appendicitis. No evidence of rupture. No abscess formation. Surgical evaluation is recommen ded. Critical Result: Acute appendicitis Findings discussed with CONSTANTINO GAONA at 06/27/2024 10:54 AM, and acknowledged receipt and understandi ng of the findings. Radiation optimization: All CT scans at this facility use at least one of these dose optimization mumtaz hniques: Automated exposure control mA and/or kV adjustment per patient size (includes targeted exams where dose is matched to clinical indication) or iterative reconstruction. HS:Y
[2024-06-27] MEDS: SODIUM CHLORIDE 0.9% 1,000 ML IV ONE ×2 (11:06→16:48)
[2024-06-27 11:08] LABS: Alanine Aminotransferase 27 U/L (7-40); Alkaline Phosphatase 74 U/L (46-116); Anion Gap 9 (5-15); Aspartate Aminotransferase 17 U/L (13-40); BUN/Creatinine Ratio 11.9 (10.0-20.0); Bilirubin, Total 0.7 mg/dL (0.2-1.0); Blood Urea Nitrogen 10 mg/dL (9-23); Calcium 10.4 mg/dL (8.7-10.4); Carbon Dioxide 27 mmol/L (20-31); Chloride 101 mmol/L (98-107); Glucose 102 mg/dL (74-106); Potassium 4.1 mmol/L (3.5-5.1); Sodium 137 mmol/L (136-145); Total Protein 7.6 g/dL (5.7-8.2)
[2024-06-27 11:13] LABS: Albumin 4.8 g/dL (3.2-4.8)
[2024-06-27] MEDS: ONDANSETRON HCL 4 MG/2 ML VIAL IV ONE ×2 (11:16→17:00)
[2024-06-27] MEDS: PIPERACILLIN-TAZOB 3.375GM 100 ML IV ONE (11:17)
[2024-06-27] MEDS: MORPHINE SULFATE 4 MG/ML SYR/VIAL IV ONE ×2 (11:17→17:00)
[2024-06-27 11:27] LABS: Lipase 38 U/L (12-53)
--- NOTE | 2024-06-27 17:21 | DVHINCON2 ---
Date of service: Jun 27, 2024 Family History: Patient reports no known family medical history. Allergies: Coded Allergies: NO KNOWN ALLERGIES (Unverified , 08/18/19) Home Meds Active Scripts Doxycycline Hyclate (DOXYCYCLINE HYCLATE) 100 Mg Tab, 100 MG PO BID, #6 TAB Prov:ALIYA MELENDEZ MD 10/18/23 Bismuth Subsalicylate (PEPTO-BISMOL TO-GO) 262 Mg Chw, 262 MG PO QID for 5 Days, #20 TAB.CHEW Prov:MELO SIDHU MD 10/10/23 Metoclopramide Hcl (Reglan) 10 Mg Tab, 10 MG PO BID for 5 Days, #10 TAB Prov:MELO SIDHU MD 10/10/23 Reported Medications Gabapentin (Gabapentin) 300 Mg Cap, 300 MG PO DAILY@BREAKFAST for 30 Days, MG 10/11/23 Losartan Potassium & Hydrochlo (Losartan Potassium/Hydroc) 1 Tab Tab, 1 TAB PO DAILY, #30 TAB 5 Refills 10/11/23 Cyclobenzaprine Hcl (Cyclobenzaprine Hcl) 10 Mg Tab, 5 MG PO DAILY for 30 Days, MG 10/11/23 Levothyroxine Sodium (Levothyroxine Sodium) 50 Mcg Tab, 50 MCG PO QAM for 30 Days, MCG 10/11/23 Vital Signs Vital Signs Date Time Temp Pulse Resp B/P (MAP) Pulse Ox O2 Delivery O2 Flow Rate FiO2 06/27/24 16:27 87 17 132/68 (89) 93 06/27/24 10:12 Room Air 06/27/24 10:12 98.3 98.3 Labs/Diagnostic Data Labs Test 06/27/24 10:41 06/27/24 10:25 Range/Units Urine Color Yellow Yellow Urine Clarity Clear Clear Urine pH 6.0 5.0-9.0 Urine Specific [place] 1.019 1.001-1.035 Urine Protein Trace H Negative Urine Ketones Negative Negative Urine Blood 2+ H Negative /uL Urine Nitrite Negative Negative Urine Bilirubin Negative Negative Urine Urobilinogen Normal Negative mg/dL Urine Leukocyte Esterase Trace Negative /uL Urine RBC 3 0 - 4 /hpf Urine Microscopic WBC 5 0-5 /HPF Urine Squamous Epithelial Cells Few <5 /hpf Urine Bacteria None seen None Seen /hpf Urine Glucose Normal Normal mg/dL White Blood Count 17.0 H 4.4-10.8 10^3/uL Red Blood Count 4.54 4.0-5.20 10^6/uL Hemoglobin 13.8 12.2-16.2 g/dL Hematocrit 41.2 36.0-46.0 % Mean Corpuscular Volume 90.8 80.0-100.0 fL Mean Corpuscular Hemoglobin 30.3 28.0-32.0 pg Mean Corpuscular Hemoglobin Concent 33.4 32.0-36.0 g/dL Red Cell Distribution Width 14.2 11.8-14.3 % Platelet Count 260 140-450 10^3/uL Mean Platelet Volume 9.6 6.9-10.8 fL Neutrophils (%) (Auto) 81.5 H 37.0-80.0 % Lymphocytes (%) (Auto) 11.0 10.0-50.0 % Monocytes (%) (Auto) 6.6 0.0-12.0 % Eosinophils (%) (Auto) 0.5 0.0-7.0 % Basophils (%) (Auto) 0.4 0.0-2.0 % Neutrophils # (Auto) 13.9 H 1.6-8.6 10 ^3/uL Lymphocytes # (Auto) 1.9 0.4-5.4 10 ^3/uL Monocytes # (Auto) 1.1 0-1.3 10 ^3/uL Eosinophils # (Auto) 0.1 0-0.8 10 ^3/uL Basophils # (Auto) 0.1 0-0.2 10 ^3/uL Nucleated Red Blood Cells 0.0 % Sodium Level 137 136-145 mmol/L Potassium Level 4.1 3.5-5.1 mmol/L Chloride Level 101 98-107 mmol/L Carbon Dioxide Level 27 20-31 mmol/L Anion Gap 9 5-15 Blood Urea Nitrogen 10 9-23 mg/dL Creatinine 0.84 0.550-1.02 mg/dL Glomerular Filtration Rate Calc 80 >90 mL/min BUN/Creatinine Ratio 11.9 10.0-20.0 Serum Glucose 102 74-106 mg/dL Calcium Level 10.4 8.7-10.4 mg/dL Total Bilirubin 0.7 0.2-1.0 mg/dL Aspartate Amino Transferase (AST) 17 13-40 U/L Alanine Aminotransferase (ALT) 27 7-40 U/L Alkaline Phosphatase 74 46-116 U/L Total Protein 7.6 5.7-8.2 g/dL Albumin 4.8 3.2-4.8 g/dL Lipase 38 12-53 U/L Assessment [id number] AC APPENDICITIS LAP/OPEN APPENDECTOMY Plan discussed with: Patient LIZ LOZANO MD Jun 27, 2024 17:21
--- NOTE | 2024-06-27 18:14 | DVHHP2 ---
History of Present Illness Reason for Visit: Abdominal pain History of Present Illness A 58 YEAR OLD FEMALE PRESENTS TO THE ED WITH COMPLAINT OF RIGHT-SIDED ABDOMINAL PAIN RADIATES TO LOWER BACK. PATIENT STATES SHE HAS BEEN EXPERIENCING RIGHT- SIDED ABDOMINAL PAIN THAT OCCASIONALLY RADIATES TO HER EPIGASTRIC REGION AND HER LOWER BACK FOR THE PAST 2 DAYS. PATIENT REPORTS SHE HAS ALSO HAD NAUSEA AND DIARRHEA WITH HER ABDOMINAL PAIN. PATIENT DENIES DYSURIA, HEMATURIA, FLANK PAIN, FEVER, CHILLS, SHORTNESS OF BREATH, CHEST PAIN, VOMITING, HEADACHE, OR OTHER COMPLAINTS. NO OTHER SYMPTOMS OR MODIFYING FACTORS AT THIS TIME. PATIENT IS ALERT, ORIENTED X 4, AND HAS STEADY GAIT. NO OTHER SYMPTOMS REPORTED AT THIS TI ME OF CARE. Is evaluated in the ER for her complaints noted to have a acute appendicitis. Therefore on-call surgeon is consulted who is planning on doing surgery however asked to hospitalist to admit overnight and to keep her NPO after midnight. Therefore I have evaluated the patient and admitting to medical service and to proceed with surgery per General surgery recommendations. Past Medical History High Lipids, HTN, Thyroid Past Surgical History: Hysterectomy Family History: Hypertension Smoke: No ALCOHOL: rare Lives: with Family Review of Systems Review of Systems No complaints of heart or lung problems. No chest pain or shortness for breath. No fevers chills or sweats. No headache dizziness. Other review of systems reviewed normal. Allergies: Coded Allergies: NO KNOWN ALLERGIES (Unverified , 08/18/19) Medications Current Medications Medications Dose Ordered Sig/Sidra Route Start Time Stop Time Status Last Admin Dose Admin Nitroglycerin 0.4 mg Q5MINP PRN SL 06/27/24 18:15 UNV Morphine Sulfate 2 mg Q30M PRN IV 06/27/24 18:15 UNV Piperacillin Sod/ Tazobactam Sod 100 ml @ 25 mls/hr Q6HR IV 06/28/24 00:00 UNV Morphine Sulfate 3 mg Q3HPRN PRN IV 06/27/24 18:15 UNV Morphine Sulfate 2 mg Q4HPRN PRN IV 06/27/24 18:15 UNV Ondansetron HCl 4 mg Q4HPRN PRN IV 06/27/24 18:15 UNV Hydralazine HCl 10 mg Q6HP PRN IV 06/27/24 18:15 UNV Metoprolol Tartrate 25 mg BID PO 06/27/24 22:00 UNV Exam Vital Signs Vital Signs Date Time Temp Pulse Resp B/P (MAP) Pulse Ox O2 Delivery O2 Flow Rate FiO2 06/27/24 16:27 87 17 132/68 (89) 93 06/27/24 10:12 Room Air 06/27/24 10:12 98.3 98.3 Exam Alert awake oriented x3. Sitting in the chair without any acute distress at present. HEENT neck supple no JVD pupils equal round react to light. Heart regular rate and rhythm normal heart sounds S1 plus S2. Lungs fair air movement chest tube will expansion no rales or wheezes. Abdomen obese soft non distended. Tenderness to palpation in the right lower quadrant without rebound or guarding. Positive active bowel sounds. Extremities no edema positive pulses. Labs/Xrays Labs Test 06/27/24 10:41 06/27/24 10:25 Range/Units Urine Color Yellow Yellow Urine Clarity Clear Clear Urine pH 6.0 5.0-9.0 Urine Specific [place] 1.019 1.001-1.035 Urine Protein Trace H Negative Urine Ketones Negative Negative Urine Blood 2+ H Negative /uL Urine Nitrite Negative Negative Urine Bilirubin Negative Negative Urine Urobilinogen Normal Negative mg/dL Urine Leukocyte Esterase Trace Negative /uL Urine RBC 3 0 - 4 /hpf Urine Microscopic WBC 5 0-5 /HPF Urine Squamous Epithelial Cells Few <5 /hpf Urine Bacteria None seen None Seen /hpf Urine Glucose Normal Normal mg/dL White Blood Count 17.0 H 4.4-10.8 10^3/uL Red Blood Count 4.54 4.0-5.20 10^6/uL Hemoglobin 13.8 12.2-16.2 g/dL Hematocrit 41.2 36.0-46.0 % Mean Corpuscular Volume 90.8 80.0-100.0 fL Mean Corpuscular Hemoglobin 30.3 28.0-32.0 pg Mean Corpuscular Hemoglobin Concent 33.4 32.0-36.0 g/dL Red Cell Distribution Width 14.2 11.8-14.3 % Platelet Count 260 140-450 10^3/uL Mean Platelet Volume 9.6 6.9-10.8 fL Neutrophils (%) (Auto) 81.5 H 37.0-80.0 % Lymphocytes (%) (Auto) 11.0 10.0-50.0 % Monocytes (%) (Auto) 6.6 0.0-12.0 % Eosinophils (%) (Auto) 0.5 0.0-7.0 % Basophils (%) (Auto) 0.4 0.0-2.0 % Neutrophils # (Auto) 13.9 H 1.6-8.6 10 ^3/uL Lymphocytes # (Auto) 1.9 0.4-5.4 10 ^3/uL Monocytes # (Auto) 1.1 0-1.3 10 ^3/uL Eosinophils # (Auto) 0.1 0-0.8 10 ^3/uL Basophils # (Auto) 0.1 0-0.2 10 ^3/uL Nucleated Red Blood Cells 0.0 % Sodium Level 137 136-145 mmol/L Potassium Level 4.1 3.5-5.1 mmol/L Chloride Level 101 98-107 mmol/L Carbon Dioxide Level 27 20-31 mmol/L Anion Gap 9 5-15 Blood Urea Nitrogen 10 9-23 mg/dL Creatinine 0.84 0.550-1.02 mg/dL Glomerular Filtration Rate Calc 80 >90 mL/min BUN/Creatinine Ratio 11.9 10.0-20.0 Serum Glucose 102 74-106 mg/dL Calcium Level 10.4 8.7-10.4 mg/dL Total Bilirubin 0.7 0.2-1.0 mg/dL Aspartate Amino Transferase (AST) 17 13-40 U/L Alanine Aminotransferase (ALT) 27 7-40 U/L Alkaline Phosphatase 74 46-116 U/L Total Protein 7.6 5.7-8.2 g/dL Albumin 4.8 3.2-4.8 g/dL Lipase 38 12-53 U/L Assessment/Plan Assessment/Plan She is clinically stable. Discussed the case with the general surgeon Dr. Pennington and apparently she had meal this late afternoon therefore he is planning on doing the surgery in the morning. Keep her NPO after midnight. IV fluids. Pain medications. Empiric IV antibiotics. Blood pressure medications. Supportive care and treatment. Otherwise further clinical management per clinical course. Discussed with the patient regarding admission and surgery and she has verbalized understanding of these and agree with the current care plan. Plan discussed with: Patient, Other My Orders Orders - SHARON BURRELL MD Procedure Category Date Status Time Admit ADMIT 06/27/24 Transmitted 18:07 Echo 2d Mode Cardiac US 06/27/24 Transmitted DOP 18:07 Npo Except For JOSÉ LUIS 06/27/24 Transmitted Medications 18:07 Nitroglycerin PHA 06/27/24 Logged Sublingual (Ntrostat 18:15 Morphine Sulfate PHA 06/27/24 Logged Injection 18:15 Stat Ekg For Chest JOSÉ LUIS 06/27/24 Transmitted Pain 18:07 Notify Of Changes [facility] 06/27/24 Transmitted From Base 18:07 Architectural Project Captain For [facility] 06/27/24 Transmitted 24 Hours 18:07 Emergency Dysrhythmia [facility] 06/27/24 Transmitted Protocol 18:07 Rhythm Strips Once [facility] 06/27/24 Transmitted Every Shift 18:07 Oxygen By Nasal RT 06/27/24 Transmitted Cannula 18:07 Piperacillin-Tazob PHA 06/28/24 Logged 3.375gm (Zosyn 3.375g 00:00 Morphine Sulfate PHA 06/27/24 Logged Injection 18:15 Morphine Sulfate PHA 06/27/24 Logged Injection 18:15 Ondansetron Hcl PHA 06/27/24 Logged (Zofran) 18:15 Hydralazine Injection PHA 06/27/24 Transmitted (Apresoline Inject 18:15 Metoprolol Tartrate PHA 06/27/24 Transmitted Tablet (Lopressor Ta 22:00 Acetaminophen Tablet PHA 06/27/24 Transmitted (Tylenol Tablet) 18:15 Famotidine Injection PHA 06/28/24 Transmitted (Pepcid Injection) 10:00 Problem List: (1) Hypertension (2) Acute appendicitis SHARON BURRELL MD Jun 27, 2024 18:14
[2024-06-27] MEDS ORDERED: NITROGLYCERIN 0.4 MG SL TAB SL PRN (18:15)
[2024-06-27] MEDS ORDERED: MORPHINE SULFATE INJ 2 MG/ml SYRG IV PRN (18:15)
[2024-06-27] MEDS ORDERED: hydrALAZINE HCL 20 MG/ML VL IV PRN (18:15)
[2024-06-27] MEDS: PIPERACILLIN-TAZOB 3.375GM 100 ML IV SCH (19:44)
[2024-06-27] MEDS: ATORVASTATIN 20 MG TAB PO SCH (22:10)
[2024-06-27] MEDS: METOPROLOL TARTRATE 25 MG TAB PO SCH (22:11)
[2024-06-27 22:48] LABS: INR 1.12 (0.9-1.15); Partial Thromboplastin Time 31.5 SEC (24.5-34.5); Prothrombin Time 11.7 sec (9.3-11.8)
--- NOTE | 2024-06-27 22:56 | DVHINCON2 ---
DATE OF CONSULTATION: 06/27/2024 HISTORY OF PRESENT ILLNESS: This patient is a 58-year-old, coming in with right lower quadrant pain in the abdomen starting yesterday some nausea; no vomiting, no constipation or diarrhea. No hematemesis or melena. No bleeding per rectum. PAST MEDICAL HISTORY: Hypertension. No diabetes. PAST SURGICAL HISTORY: Hysterectomy. PHYSICAL EXAMINATION: VITAL SIGNS: On examination, afebrile, stable signs. HEENT: With no evidence of pallor, cyanosis, or jaundice. NECK: Supple, nontender with no thyromegaly or lymphadenopathy. CHEST AND LUNGS: Clear. HEART: Within normal limits. ABDOMEN: Soft, tender in the right lower quadrant, evidence of rebound. EXTREMITIES: Unremarkable. NEUROLOGIC: Intact. CLINICAL IMPRESSION: Acute appendicitis, confirmed by CT scan. PLAN: The plan will be to consider a laparoscopic, possible open appendectomy. Benefits and risks discussed and a consent obtained. MD AUTUMN Marquez/CRUZ TID: [id number] RECEIPT: [id number] cc: Frederick Bianchi MD
--- NOTE | 2024-06-27 23:17 | DVH ---
CHEST RADIOGRAPH Indication: pre-op Technique: Frontal and lateral view of the chest was obtained Comparison: CHEST TWO VIEWS ROUTINE on DOS: 10/14/2023 FINDINGS: Lines and Tubes: None Lungs: Bibasilar subsegmental atelectasis/consolidation. Pleura: No effusion. No pneumothorax. Cardiomediastinal contours: Unremarkable Bones: Unremarkable IMPRESSION: Bibasilar subsegmental atelectasis/consolidation.
[2024-06-28] MEDS: ACETAMINOPHEN 325 MG TAB PO PRN (00:18)
[2024-06-28 00:23] VITALS: PULSE 75; RESP 18; O2SAT 99
[2024-06-28 00:43] VITALS: BP 109/57; PULSE 75; RESP 18; TEMP 97.9; O2SAT 99
[2024-06-28] MEDS: D5W/SOD CHLO 0.9% 1,000 ML IV SCH (05:55)
[2024-06-28] MEDS: MORPHINE SULFATE INJ 2 MG/ml SYRG IV PRN (07:02)
[2024-06-28] MEDS: LEVOTHYROXINE SODIUM 25 MCG TAB PO SCH (07:07)
[2024-06-28 09:42] VITALS: BP 120/56; PULSE 69; RESP 19; TEMP 97.7; O2SAT 95
[2024-06-28] MEDS: FAMOTIDINE (10MG/ML) 2ML VL IV SCH (10:24)
[2024-06-28] MEDS: MORPHINE SULFATE 4 MG/ML SYR/VIAL IV PRN (10:42)
[2024-06-28] MEDS ORDERED: ATOR10TA PO (11:51)
[2024-06-28] MEDS ORDERED: METO-158 PO (11:51)
[2024-06-28] MEDS ORDERED: LEVO50CA3 PO (11:51)
[2024-06-28] MEDS ORDERED: PANT40TA57 PO (11:51)
[2024-06-28] MEDS ORDERED: LOSA-534 PO (11:51)
[2024-06-28] MEDS ORDERED: AML5T PO (11:51)
[2024-06-28] MEDS ORDERED: GABA-1250 PO (11:51)
--- NOTE | 2024-06-28 14:18 | DVHPN2 ---
Progress Note - Dictate Date Seen: Jun 28, 2024 Medical Necessity Reason Pt with a Central, PICC or Fol: No Subjective She was not in her room when came to see her. Patient is taken to the OR for appendectomy per nurse. vital signs Vital Sign Date Time Temp Pulse Resp B/P (MAP) Pulse Ox O2 Delivery O2 Flow Rate FiO2 06/28/24 10:42 71 16 121/65 06/28/24 09:42 97.7 95 97.7 06/28/24 00:23 Nasal Cannula* 2 28 Total Intake and Output 06/27/24 06/27/24 06/28/24 15:00 23:00 07:00 Intake Total 1100 ml 130 ml Balance 1100 ml 130 ml medications Current Medications Medications Dose Ordered Sig/Sidra Route Start Time Stop Time Status Last Admin Dose Admin Nitroglycerin 0.4 mg Q5MINP PRN SL 06/27/24 18:15 Morphine Sulfate 2 mg Q30M PRN IV 06/27/24 18:15 Piperacillin Sod/ Tazobactam Sod 100 ml @ 25 mls/hr Q6HR IV 06/27/24 18:18 06/28/24 12:19 25 MLS/HR Morphine Sulfate 3 mg Q3HPRN PRN IV 06/27/24 18:15 06/28/24 10:42 3 MG Morphine Sulfate 2 mg Q4HPRN PRN IV 06/27/24 18:15 06/28/24 07:02 2 MG Ondansetron HCl 4 mg Q4HPRN PRN IV 06/27/24 18:15 Hydralazine HCl 10 mg Q6HP PRN IV 06/27/24 18:15 Metoprolol Tartrate 25 mg BID PO 06/27/24 22:00 06/28/24 10:25 25 MG Acetaminophen 650 mg Q4HP PRN PO 06/27/24 18:15 06/28/24 00:18 650 MG Famotidine 20 mg DAILY IV 06/28/24 10:00 06/28/24 10:24 20 MG Dextrose/Sodium Chloride 1,000 ml @ 75 mls/hr [id number] IV 06/27/24 18:15 Levothyroxine Sodium 75 mcg QAM@0600 PO 06/28/24 06:00 06/28/24 07:07 75 MCG Atorvastatin Calcium 20 mg HS PO 06/27/24 22:00 06/27/24 22:10 20 MG laboratory and microbiology Laboratory Tests 06/27/24 10:25 Test 06/27/24 10:25 Range/Units Serum Glucose 102 74-106 mg/dL Assessment/Plan Continue current medications and management as she is on. Her further clinical management per postop recovery and recommendations from the surgeon. Discussed with the nurse regarding care plan. Problems(with codes): (1) Acute appendicitis (2) Hypertension Plan discussed with: SHARON Ramirez MD Jun 28, 2024 14:18
[2024-06-28] MEDS ORDERED: fentaNYL CITRATE 100 MCG/2 ML VL ONE (14:49)
[2024-06-28] MEDS ORDERED: MIDAZOLAM HCL 2MG/2ML 2ml VIAL (1mg/ml) ONE (14:49)
[2024-06-28] MEDS ORDERED: LIDOCAINE 2% (LOCAL ANESTH.) PF 5ml SDV ONE (14:54)
[2024-06-28] MEDS ORDERED: ONDANSETRON HCL 4 MG/2 ML VIAL ONE (14:54)
[2024-06-28] MEDS ORDERED: PROPOFOL 10 MG/ML 20 ML IV ONE (14:55)
[2024-06-28] MEDS: LIDOCAINE 1% HCL (LOCAL ANESTH.) INJ 20ML MDV ONE (16:08)
[2024-06-28] MEDS: BUPIVACAINE 0.25% INJ 50ML VIAL ONE (16:08)
--- NOTE | 2024-06-28 16:10 | DVHOP2 ---
Operative Report [id number] AC APPENDICITIS DENSE INTRAABD ADHESIONS INTRAABD ABSCESS LAP COLIN DRAINAGE INTRAABD ABSCESS LAP APPENDECTOMY EBL 25 CC ONE DRAIN NO COMPLICATIONS LIZ LOZANO MD Jun 28, 2024 16:10
[2024-06-28] MEDS: ONDANSETRON HCL 4 MG/2 ML VIAL IV ONE (16:30)
--- NOTE | 2024-06-28 16:35 | DVHOP ---
DATE OF SURGERY: 06/28/2024 PREOPERATIVE DIAGNOSIS: Acute appendicitis, was found to have intra-abdominal abscess with dense adhesions. POSTOPERATIVE DIAGNOSIS: Acute appendicitis, was found to have intra-abdominal abscess with dense adhesions. PROCEDURE: Laparoscopic lysis of dense adhesions with a drainage of intraabdominal abscess and laparoscopic appendectomy. SURGEON: Octavio Pennington MD PATIENT FINANCIAL REPRESENTATIVE: None. ANESTHESIA: General. ESTIMATED BLOOD LOSS: Close to 25 mL. DRAINS: One drain was used. COMPLICATIONS: No complications were encountered. DESCRIPTION OF PROCEDURE: The patient was prepped and draped in the usual sterile fashion in the supine position and a supraumbilical incision was applied, was taken down to the fascia. The Veress needle was introduced and CO2 insufflation was started to pressure of 15 mmHg. The needle was withdrawn, replaced by the 12 mm trocar and a telescope was introduced and the appendix was found to be acutely inflamed with intraabdominal abscess and dense adhesions. Two 5 mm ports were applied more inferiorly, one above the symphysis, the third midway between the upper two. The camera was moved to the lowermost 5 mm port, the upper 2 ports were used for surgery. The patient was placed in Trendelenburg and in the right upper lateral position, the adhesions were taken down meticulously. The appendix was released. The abscess was drained out. The mesoappendix was clipped at the base, divided distal to that using Harmonic device. The base of the appendix was identified and transected using the Endo TIFFANY stapling device. The appendix released in this fashion was retrieved from the supraumbilical wound in the EndoCatch bag without any complication. Hemostasis was secured. Irrigation fluid was removed. The port sites were free from bleeding and size 19 Tony drainage tube was placed to drain the right lower quadrant and the pelvis, bringing out from the lowermost 5 mm port. After that, one port had been withdrawn, securing the drain with a silk suture. The hemostasis is being secured from the port sites as well. The CO2 was let out. The patient was placed back supine. The EndoClose suture used for the fascial closure of the supraumbilical wound. All the ports were withdrawn after all the CO2 been let out and the patient was placed back supine. The wounds were then brought together using 3-0 Monocryl suture in a subcuticular fashion. Surgical glue was applied. The patient tolerated the procedure well and was taken back to recovery room in stable condition. MD AUTUMN Marquez/YUSEF TID: [id number] RECEIPT: [id number] cc: Frederick Sequeira MD
[2024-06-28] MEDS: HYDROmorphone HCL 2 MG/ML VL/or syr ONE (16:43)
[2024-06-28] MEDS ORDERED: HYDROmorphone HCL 2 MG/ML VL/or syr IV PRN (16:45)
[2024-06-28] MEDS: HYDROmorphone HCL 2 MG/ML VL/or syr IV PRN (16:50)
[2024-06-28] MEDS ORDERED: ROCURONIUM 10MG/ML 10ML VIAL IV ONE (16:53)
[2024-06-28] MEDS: PROCHLORPERAZINE EDISYLATE 5 MG/ML 2ML VIAL IM ONE (17:33)
[2024-06-28 21:00] VITALS: BP 95/38; PULSE 64; RESP 18; TEMP 98.6; O2SAT 98
[2024-06-29] VITALS (8 sets, daily range): BP systolic 125–141; BP diastolic 60–72; PULSE 70–84; RESP 17–19; TEMP 97.5–98.6; O2SAT 90–97
[2024-06-29 05:35] LABS: Basophils # (auto) 0.1 10 ^3/uL (0-0.2); Basophils % (auto) 0.5 % (0.0-2.0); Eosinophils # (auto) 0.2 10 ^3/uL (0-0.8); Eosinophils % (auto) 2.1 % (0.0-7.0); Hematocrit 38.1 % (36.0-46.0); Hemoglobin 12.9 g/dL (12.2-16.2); Lymphocytes # (auto) 1.4 10 ^3/uL (0.4-5.4); Lymphocytes % (auto) 13.4 % (10.0-50.0); Mean Corpuscular Hemoglobin 30.7 pg (28.0-32.0); Mean Corpuscular Hgb Conc. 33.9 g/dL (32.0-36.0); Mean Corpuscular Volume 90.6 fL (80.0-100.0); Monocytes # (auto) 0.6 10 ^3/uL (0-1.3); Monocytes % (auto) 5.2 % (0.0-12.0); Neutrophils # (auto) 8.5 10 ^3/uL (1.6-8.6); Neutrophils % (auto) 78.8 % (37.0-80.0); Platelet Count (auto) 182 10^3/uL (140-450); Red Blood Cells 4.21 10^6/uL (4.0-5.20); Red Cell Distribution Width 14.2 % (11.8-14.3); White Blood Cell 10.7 10^3/uL (4.4-10.8)
[2024-06-29 05:50] LABS: Anion Gap 8 (5-15); Carbon Dioxide 27 mmol/L (20-31); Chloride 105 mmol/L (98-107); Potassium 3.5 mmol/L (3.5-5.1); Sodium 140 mmol/L (136-145)
[2024-06-29 05:51] LABS: Calcium 9.4 mg/dL (8.7-10.4)
[2024-06-29 05:56] LABS: Glucose 95 mg/dL (74-106)
[2024-06-29 05:57] LABS: BUN/Creatinine Ratio 7.7 (10.0-20.0); Blood Urea Nitrogen < 5 mg/dL (9-23)
--- NOTE | 2024-06-29 07:16 | ECG ---
[facility] Test Date: 2024-06-27 Test Time: 09:53:56 Pat Name: JONY WHITE Department: ER [facility] Gender: F Histologist Technologist: SAFIA : 1965 Requested By: CONSTANTINO GAONA Order Number: [id number] Reading MD: Shawn Chavarria Measurements Intervals [place] Rate: 102 P: 37 MT: 170 QRS: 34 QRSD: 86 T: 36 QT: 326 QTc: 425 Interpretive Statements Sinus tachycardia Low voltage, precordial leads Borderline T abnormalities, anterior leads 3 Electronically Signed On 06-29-2024 14:43:28 PST by Shawn Chavarria Please click the below link to view image of tracing.
[2024-06-29] MEDS: ONDANSETRON HCL 4 MG/2 ML VIAL IV PRN (09:22)
--- NOTE | 2024-06-29 13:18 | DVHPN2 ---
Progress Note - Dictate Date Seen: Jun 29, 2024 Medical Necessity Reason Pt with a Central, PICC or Fol: No Subjective She is stable without complaints. Status post appendectomy surgery postop day one today. Has a DHEERAJ drain. vital signs Vital Sign Date Time Temp Pulse Resp B/P (MAP) Pulse Ox O2 Delivery O2 Flow Rate FiO2 06/29/24 10:23 78 130/70 06/29/24 09:53 20 06/29/24 09:00 97.5 91 97.5 06/28/24 19:50 Nasal Cannula* 4 36 Total Intake and Output 06/28/24 06/28/24 06/29/24 15:00 23:00 07:00 Output Total 95 ml 840 ml Balance -95 ml -840 ml medications Current Medications Medications Dose Ordered Sig/Sidra Route Start Time Stop Time Status Last Admin Dose Admin Nitroglycerin 0.4 mg Q5MINP PRN SL 06/27/24 18:15 Morphine Sulfate 2 mg Q30M PRN IV 06/27/24 18:15 Piperacillin Sod/ Tazobactam Sod 100 ml @ 25 mls/hr Q6HR IV 06/27/24 18:18 06/29/24 12:52 25 MLS/HR Morphine Sulfate 3 mg Q3HPRN PRN IV 06/27/24 18:15 06/28/24 10:42 3 MG Morphine Sulfate 2 mg Q4HPRN PRN IV 06/27/24 18:15 06/29/24 09:23 2 MG Ondansetron HCl 4 mg Q4HPRN PRN IV 06/27/24 18:15 06/29/24 09:22 4 MG Hydralazine HCl 10 mg Q6HP PRN IV 06/27/24 18:15 Metoprolol Tartrate 25 mg BID PO 06/27/24 22:00 06/29/24 09:23 25 MG Acetaminophen 650 mg Q4HP PRN PO 06/27/24 18:15 06/28/24 00:18 650 MG Famotidine 20 mg DAILY IV 06/28/24 10:00 06/29/24 09:22 20 MG Dextrose/Sodium Chloride 1,000 ml @ 75 mls/hr [id number] IV 06/27/24 18:15 06/29/24 10:15 75 MLS/HR Levothyroxine Sodium 75 mcg QAM@0600 PO 06/28/24 06:00 06/29/24 05:08 75 MCG Atorvastatin Calcium 20 mg HS PO 06/27/24 22:00 06/28/24 21:06 20 MG objective Alert awake oriented x3. HEENT neck supple no JVD. Heart regular rate and rhythm S1-S2. Lungs without rales wheezes. Abdomen obese, soft positive bowel sounds with the abdominal binder. DHEERAJ drain present in the lower abdomen. Extremities no edema. laboratory and microbiology Laboratory Tests 06/29/24 05:08 Test 06/29/24 05:08 Range/Units Serum Glucose 95 74-106 mg/dL Assessment/Plan Continue current medications and management as she is on. Encouraged incentive spirometry and out of bed activity and ambulate as tolerated. Start her on clear liquid diet. Further clinical management per clinical course. Discussed with the patient's nurse regarding care plan. Problems(with codes): (1) Acute appendicitis (2) Hypertension Plan discussed with: Patient, Other SHARON BURRELL MD Jun 29, 2024 13:16
--- NOTE | 2024-06-29 16:47 | DVHPN2 ---
Progress Note Date Seen: Jun 29, 2024 Medical Necessity Reason Pt with a Central, PICC or Fol: No Objective vital signs Vital Sign Date Time Temp Pulse Resp B/P (MAP) Pulse Ox O2 Delivery O2 Flow Rate FiO2 06/29/24 14:14 79 18 134/70 06/29/24 13:00 97.5 95 97.5 06/29/24 08:00 Nasal Cannula* 4 36 Total Intake and Output 06/28/24 06/28/24 06/29/24 15:00 23:00 07:00 Output Total 95 ml 840 ml Balance -95 ml -840 ml medications Current Medications Medications Dose Ordered Sig/Sidra Route Start Time Stop Time Status Last Admin Dose Admin Nitroglycerin 0.4 mg Q5MINP PRN SL 06/27/24 18:15 Morphine Sulfate 2 mg Q30M PRN IV 06/27/24 18:15 Piperacillin Sod/ Tazobactam Sod 100 ml @ 25 mls/hr Q6HR IV 06/27/24 18:18 06/29/24 12:52 25 MLS/HR Morphine Sulfate 3 mg Q3HPRN PRN IV 06/27/24 18:15 06/28/24 10:42 3 MG Morphine Sulfate 2 mg Q4HPRN PRN IV 06/27/24 18:15 06/29/24 13:44 2 MG Ondansetron HCl 4 mg Q4HPRN PRN IV 06/27/24 18:15 06/29/24 13:43 4 MG Hydralazine HCl 10 mg Q6HP PRN IV 06/27/24 18:15 Metoprolol Tartrate 25 mg BID PO 06/27/24 22:00 06/29/24 09:23 25 MG Acetaminophen 650 mg Q4HP PRN PO 06/27/24 18:15 06/28/24 00:18 650 MG Famotidine 20 mg DAILY IV 06/28/24 10:00 06/29/24 09:22 20 MG Dextrose/Sodium Chloride 1,000 ml @ 75 mls/hr [id number] IV 06/27/24 18:15 06/29/24 10:15 75 MLS/HR Levothyroxine Sodium 75 mcg QAM@0600 PO 06/28/24 06:00 06/29/24 05:08 75 MCG Atorvastatin Calcium 20 mg HS PO 06/27/24 22:00 06/28/24 21:06 20 MG laboratory and microbiology Laboratory Tests 06/29/24 05:08 Test 06/29/24 05:08 Range/Units Serum Glucose 95 74-106 mg/dL Problem List/Assessment/Plan Problem List/Assessment/Plan AFEBRILE VSS WOUNDS HEALING NO COMPLICATIONS DRAIN 40 CC SEROSANGUINEOUS CONTINUE CLOSE OBSERVATION IV ABX Plan discussed with: Patient LIZ LOZANO MD Jun 29, 2024 16:47
--- NOTE | 2024-06-29 22:45 | DVHSR ---
APPROVED REPORT EXAM: Two-dimensional and M-mode echocardiogram with Doppler and color Doppler. Blood Pressure: 131/68 mmHg INDICATION Hypertension RISK FACTORS Obesity: Height: 5'7", Weight: 246 DIMENSIONS LVDd4.6 (3.8-5.7cm)LA (2D) (1.9-4.0cm)Aortic Root3.8 (2.0-3.7cm) LVDs3.2 (2.5-4.0cm)LA (MM) (1.9-4.0cm)Aortic Cusp Exc2.2 (1.5-2.0cm) EF (%) 60.0 (55-70%)Rt. Atrium (1.9-4.0cm)Asc. Aorta cm IVSd0.9 (0.7-1.1cm)RV (D) (1.8-2.4cm) PWd1.0 (0.7-1.1cm) Mitral Valve MitralMitral Stenosis E wave0.94m/sMV Mean GR.mmHg A wave0.87m/sMV Peak GR.mmHg E/A ratio1.12D MVAcm2 DECEL [id number] 1/2 Timems Aortic Valve Aortic ValveAortic Stenosis V11.23m/Katie Mean GR.3mmHg V21.30m/Katie Peak GR.7mmHg LVOT Diameter2.2 (1.8-2.4cm)Doppler AVA3.59cm2 Pulmonic Valve V20.97m/s Other Information Technically limited study due to body habitus, s/p surgery with abdominal band. Conclusion LV EJECTION FRACTION IS 65% NORMAL VALVES NORMAL RV FUNCTION NO EFFUSION
[2024-06-30] VITALS (10 sets, daily range): BP systolic 113–137; BP diastolic 54–76; PULSE 64–82; RESP 16–20; TEMP 97.6–98.2; O2SAT 91–95
--- NOTE | 2024-06-30 14:49 | DVHPN2 ---
Progress Note - Dictate Date Seen: Jun 30, 2024 Medical Necessity Reason Pt with a Central, PICC or Fol: No Subjective Tolerating clear liquid diet without problems. Ambulated without problems. vital signs Vital Sign Date Time Temp Pulse Resp B/P (MAP) Pulse Ox O2 Delivery O2 Flow Rate FiO2 06/30/24 14:28 69 16 127/65 06/30/24 13:00 97.6 95 97.6 06/30/24 08:30 Room Air* 3 N/A Nasal Cannula* Total Intake and Output 06/29/24 06/29/24 06/30/24 15:00 23:00 07:00 Intake Total 1000 ml 1525 ml Output Total 570 ml 50 ml Balance 430 ml 1475 ml medications Current Medications Medications Dose Ordered Sig/Sidra Route Start Time Stop Time Status Last Admin Dose Admin Nitroglycerin 0.4 mg Q5MINP PRN SL 06/27/24 18:15 Morphine Sulfate 2 mg Q30M PRN IV 06/27/24 18:15 Piperacillin Sod/ Tazobactam Sod 100 ml @ 25 mls/hr Q6HR IV 06/27/24 18:18 06/30/24 14:26 25 MLS/HR Morphine Sulfate 3 mg Q3HPRN PRN IV 06/27/24 18:15 06/30/24 14:28 3 MG Morphine Sulfate 2 mg Q4HPRN PRN IV 06/27/24 18:15 06/30/24 03:57 2 MG Ondansetron HCl 4 mg Q4HPRN PRN IV 06/27/24 18:15 06/29/24 13:43 4 MG Hydralazine HCl 10 mg Q6HP PRN IV 06/27/24 18:15 Metoprolol Tartrate 25 mg BID PO 06/27/24 22:00 06/29/24 21:24 25 MG Acetaminophen 650 mg Q4HP PRN PO 06/27/24 18:15 06/28/24 00:18 650 MG Famotidine 20 mg DAILY IV 06/28/24 10:00 06/30/24 09:41 20 MG Dextrose/Sodium Chloride 1,000 ml @ 75 mls/hr [id number] IV 06/27/24 18:15 06/30/24 14:29 75 MLS/HR Levothyroxine Sodium 75 mcg QAM@0600 PO 06/28/24 06:00 06/30/24 05:28 75 MCG Atorvastatin Calcium 20 mg HS PO 06/27/24 22:00 06/29/24 21:24 20 MG Acetylcysteine 200 mg Q6HR NEB 06/30/24 18:00 UNV objective Alert awake oriented x3. HEENT neck supple no JVD. Heart regular rate and rhythm S1-S2. Lungs without rales wheezes. Abdomen obese, soft positive bowel sounds with the abdominal binder. DHEERAJ drain present in the lower abdomen. Extremities no edema. laboratory and microbiology Laboratory Tests 06/29/24 05:08 Test 06/29/24 05:08 Range/Units Serum Glucose 95 74-106 mg/dL Assessment/Plan Continue current medications and management as she is on. Advance diet to soft diet for dinner. Encouraged activity and ambulation. Otherwise continue rest of supportive care and treatment and further clinical management per clinical course. Discussed with the patient's nurse regarding care plan. Problems(with codes): (1) Acute appendicitis (2) Hypertension Plan discussed with: Patient, Other SHARON BURRELL MD Jun 30, 2024 14:48
[2024-06-30] MEDS: ACETYLCYSTEINE 20%(200MG/ML) SOL 4ML NEB SCH (19:22)
[2024-06-30] MEDS: ALBUTEROL SULF 2.5 MG/0.5ML(0.5%) NEB SOLN NEB SCH (19:22)
--- NOTE | 2024-06-30 21:30 | DVHPN2 ---
Progress Note Date Seen: Jun 30, 2024 Medical Necessity Reason Pt with a Central, PICC or Fol: No Objective vital signs Vital Sign Date Time Temp Pulse Resp B/P (MAP) Pulse Ox O2 Delivery O2 Flow Rate FiO2 06/30/24 21:00 97.7 80 20 137/57 (83) 94 97.7 06/30/24 19:22 Nasal Cannula* 3 32 Total Intake and Output 06/29/24 06/29/24 06/30/24 15:00 23:00 07:00 Intake Total 1000 ml 1525 ml Output Total 570 ml 50 ml Balance 430 ml 1475 ml medications Current Medications Medications Dose Ordered Sig/Sidra Route Start Time Stop Time Status Last Admin Dose Admin Nitroglycerin 0.4 mg Q5MINP PRN SL 06/27/24 18:15 Morphine Sulfate 2 mg Q30M PRN IV 06/27/24 18:15 Piperacillin Sod/ Tazobactam Sod 100 ml @ 25 mls/hr Q6HR IV 06/27/24 18:18 06/30/24 18:39 25 MLS/HR Morphine Sulfate 3 mg Q3HPRN PRN IV 06/27/24 18:15 06/30/24 20:10 3 MG Morphine Sulfate 2 mg Q4HPRN PRN IV 06/27/24 18:15 Hold 06/30/24 03:57 2 MG Ondansetron HCl 4 mg Q4HPRN PRN IV 06/27/24 18:15 06/29/24 13:43 4 MG Hydralazine HCl 10 mg Q6HP PRN IV 06/27/24 18:15 Metoprolol Tartrate 25 mg BID PO 06/27/24 22:00 06/29/24 21:24 25 MG Acetaminophen 650 mg Q4HP PRN PO 06/27/24 18:15 06/28/24 00:18 650 MG Famotidine 20 mg DAILY IV 06/28/24 10:00 06/30/24 09:41 20 MG Levothyroxine Sodium 75 mcg QAM@0600 PO 06/28/24 06:00 06/30/24 05:28 75 MCG Atorvastatin Calcium 20 mg HS PO 06/27/24 22:00 06/29/24 21:24 20 MG Acetylcysteine 200 mg Q6HR NEB 06/30/24 18:00 06/30/24 19:22 200 MG Acetaminophen/ Hydrocodone Bitart 1 tab Q4HPRN PRN PO 06/30/24 15:00 Albuterol 2.5 mg Q6HR NEB 06/30/24 18:00 06/30/24 19:22 2.5 MG laboratory and microbiology Laboratory Tests 06/29/24 05:08 Test 06/29/24 05:08 Range/Units Serum Glucose 95 74-106 mg/dL Problem List/Assessment/Plan Problem List/Assessment/Plan AFEBRILE VSS WOUNDS HEALING NO COMPLICATIONS DRAIN 40 CC SEROSANGUINEOUS CONTINUE CLOSE OBSERVATION GUS DIET IV ABX Plan discussed with: Patient LIZ LOZANO MD Jun 30, 2024 21:30
[2024-06-30] MEDS: HYDROcodone-ACET 5/325MG TAB PO PRN (22:39)
[2024-07-01] VITALS (16 sets, daily range): BP systolic 116–154; BP diastolic 65–81; PULSE 60–87; RESP 16–20; TEMP 97.4–98.3; O2SAT 91–98
[2024-07-01] MEDS: METOCLOPRAMIDE HCL 5MG/ml INJ 2ml VIAL IV PRN (03:43)
--- NOTE | 2024-07-01 11:48 | DVHPN2 ---
Progress Note Date Seen: Jul 01, 2024 Medical Necessity Reason Pt with a Central, PICC or Fol: No Objective vital signs Vital Sign Date Time Temp Pulse Resp B/P (MAP) Pulse Ox O2 Delivery O2 Flow Rate FiO2 07/01/24 11:30 94 Nasal Cannula* 3 32 07/01/24 09:00 97.8 64 20 137/76 (96) 97.8 Total Intake and Output 06/30/24 06/30/24 07/01/24 15:00 23:00 07:00 Intake Total 1120 ml 200 ml Output Total 20 ml Balance 1100 ml 200 ml medications Current Medications Medications Dose Ordered Sig/Sidra Route Start Time Stop Time Status Last Admin Dose Admin Nitroglycerin 0.4 mg Q5MINP PRN SL 06/27/24 18:15 Morphine Sulfate 2 mg Q30M PRN IV 06/27/24 18:15 Piperacillin Sod/ Tazobactam Sod 100 ml @ 25 mls/hr Q6HR IV 06/27/24 18:18 07/01/24 11:13 25 MLS/HR Morphine Sulfate 3 mg Q3HPRN PRN IV 06/27/24 18:15 07/01/24 03:55 3 MG Morphine Sulfate 2 mg Q4HPRN PRN IV 06/27/24 18:15 Hold 06/30/24 03:57 2 MG Ondansetron HCl 4 mg Q4HPRN PRN IV 06/27/24 18:15 07/01/24 00:13 4 MG Hydralazine HCl 10 mg Q6HP PRN IV 06/27/24 18:15 Metoprolol Tartrate 25 mg BID PO 06/27/24 22:00 07/01/24 08:57 25 MG Acetaminophen 650 mg Q4HP PRN PO 06/27/24 18:15 07/01/24 08:58 650 MG Famotidine 20 mg DAILY IV 06/28/24 10:00 07/01/24 08:57 20 MG Levothyroxine Sodium 75 mcg QAM@0600 PO 06/28/24 06:00 07/01/24 06:10 75 MCG Atorvastatin Calcium 20 mg HS PO 06/27/24 22:00 06/30/24 21:33 20 MG Acetylcysteine 200 mg Q6HR NEB 06/30/24 18:00 07/01/24 07:06 200 MG Acetaminophen/ Hydrocodone Bitart 1 tab Q4HPRN PRN PO 06/30/24 15:00 06/30/24 22:39 1 TAB Albuterol 2.5 mg Q6HR NEB 06/30/24 18:00 07/01/24 07:07 2.5 MG Metoclopramide HCl 10 mg Q8HPRN PRN IV 07/01/24 03:30 07/01/24 03:43 10 MG laboratory and microbiology Laboratory Tests 06/29/24 05:08 Test 06/29/24 05:08 Range/Units Serum Glucose 95 74-106 mg/dL Problem List/Assessment/Plan Problem List/Assessment/Plan AFEBRILE VSS WOUNDS HEALING NO COMPLICATIONS DRAIN 40 CC SEROSANGUINEOUS CONTINUE CLOSE OBSERVATION NOT GUS SOFT DIET MAINTAIN ON LIQUIDS DIET IV ABX Plan discussed with: Patient My Orders My Orders Orders - LIZ LOZANO MD Procedure Category Date Status Time Full Liq Diet DIET 07/01/24 Transmitted Lunch LIZ LOZANO MD Jul 01, 2024 11:48
[2024-07-01] MEDS ORDERED: ACETYLCYSTEINE 20%(200MG/ML) SOL 4ML NEB PRN (16:15)
[2024-07-01] MEDS ORDERED: ALBUTEROL SULF 2.5 MG/0.5ML(0.5%) NEB SOLN NEB PRN (16:15)
--- NOTE | 2024-07-01 17:58 | DVHPN2 ---
Progress Note - Dictate Date Seen: Jul 01, 2024 Medical Necessity Reason Pt with a Central, PICC or Fol: No Subjective Tolerating full liquid diet. Did do well with soft diet last night for dinner. Passing gas. Ambulating with PT. vital signs Vital Sign Date Time Temp Pulse Resp B/P (MAP) Pulse Ox O2 Delivery O2 Flow Rate FiO2 07/01/24 16:57 97.4 66 16 154/81 (105) 91 97.4 07/01/24 11:30 Nasal Cannula* 3 32 Total Intake and Output 06/30/24 06/30/24 07/01/24 15:00 23:00 07:00 Intake Total 1120 ml 200 ml Output Total 20 ml Balance 1100 ml 200 ml medications Current Medications Medications Dose Ordered Sig/Sidra Route Start Time Stop Time Status Last Admin Dose Admin Nitroglycerin 0.4 mg Q5MINP PRN SL 06/27/24 18:15 Morphine Sulfate 2 mg Q30M PRN IV 06/27/24 18:15 Piperacillin Sod/ Tazobactam Sod 100 ml @ 25 mls/hr Q6HR IV 06/27/24 18:18 07/01/24 11:13 25 MLS/HR Morphine Sulfate 3 mg Q3HPRN PRN IV 06/27/24 18:15 07/01/24 03:55 3 MG Morphine Sulfate 2 mg Q4HPRN PRN IV 06/27/24 18:15 Hold 06/30/24 03:57 2 MG Ondansetron HCl 4 mg Q4HPRN PRN IV 06/27/24 18:15 07/01/24 15:58 4 MG Hydralazine HCl 10 mg Q6HP PRN IV 06/27/24 18:15 Metoprolol Tartrate 25 mg BID PO 06/27/24 22:00 07/01/24 08:57 25 MG Acetaminophen 650 mg Q4HP PRN PO 06/27/24 18:15 07/01/24 15:58 650 MG Famotidine 20 mg DAILY IV 06/28/24 10:00 07/01/24 08:57 20 MG Levothyroxine Sodium 75 mcg QAM@0600 PO 06/28/24 06:00 07/01/24 06:10 75 MCG Atorvastatin Calcium 20 mg HS PO 06/27/24 22:00 06/30/24 21:33 20 MG Acetaminophen/ Hydrocodone Bitart 1 tab Q4HPRN PRN PO 06/30/24 15:00 06/30/24 22:39 1 TAB Metoclopramide HCl 10 mg Q8HPRN PRN IV 07/01/24 03:30 07/01/24 03:43 10 MG Acetylcysteine 200 mg Q6HR PRN NEB 07/01/24 16:15 Albuterol 2.5 mg Q6HR PRN NEB 07/01/24 16:15 objective Alert awake oriented x3. HEENT neck supple no JVD. Heart regular rate and rhythm S1-S2. Lungs without rales wheezes. Abdomen obese, soft positive bowel sounds with the abdominal binder. DHEERAJ drain present in the lower abdomen. Extremities no edema. laboratory and microbiology Laboratory Tests 06/29/24 05:08 Test 06/29/24 05:08 Range/Units Serum Glucose 95 74-106 mg/dL Assessment/Plan Continue current medications and management as she is on. Consider soft diet tomorrow if she tolerates full liquids today. Continue activity and ambulation. Further clinical management per clinical course and recommendations from the surgeon. Discussed with the patient at bedside regarding care plan. Problems(with codes): (1) Bronchitis (2) Acute appendicitis (3) Hypertension Plan discussed with: Patient, Other SHARON BURRELL MD Jul 01, 2024 17:58
[2024-07-02] VITALS (10 sets, daily range): BP systolic 110–137; BP diastolic 54–83; PULSE 52–63; RESP 16–20; TEMP 97.5–98.4; O2SAT 90–99
[2024-07-02 07:45] LABS: Basophils # (auto) 0 10 ^3/uL (0-0.2); Basophils % (auto) 0.5 % (0.0-2.0); Eosinophils # (auto) 0.3 10 ^3/uL (0-0.8); Eosinophils % (auto) 3.7 % (0.0-7.0); Hematocrit 37.1 % (36.0-46.0); Hemoglobin 12.2 g/dL (12.2-16.2); Lymphocytes # (auto) 1.5 10 ^3/uL (0.4-5.4); Lymphocytes % (auto) 17.9 % (10.0-50.0); Mean Corpuscular Hemoglobin 29.8 pg (28.0-32.0); Mean Corpuscular Volume 90.4 fL (80.0-100.0); Monocytes # (auto) 0.5 10 ^3/uL (0-1.3); Monocytes % (auto) 6.3 % (0.0-12.0); Neutrophils # (auto) 5.9 10 ^3/uL (1.6-8.6); Neutrophils % (auto) 71.6 % (37.0-80.0); Platelet Count (auto) 255 10^3/uL (140-450); Red Cell Distribution Width 13.6 % (11.8-14.3); White Blood Cell 8.3 10^3/uL (4.4-10.8)
[2024-07-02] MEDS: PIPERACILLIN-TAZOB 3.375GM 100 ML IV SCH (09:14)
[2024-07-02 09:17] LABS: Anion Gap 11 (5-15); Carbon Dioxide 27 mmol/L (20-31); Chloride 104 mmol/L (98-107); Potassium 3.4 mmol/L (3.5-5.1); Sodium 142 mmol/L (136-145)
[2024-07-02 09:18] LABS: Calcium 9.9 mg/dL (8.7-10.4)
[2024-07-02 09:20] LABS: Glucose 84 mg/dL (74-106)
[2024-07-02 09:25] LABS: BUN/Creatinine Ratio 7.4 (10.0-20.0); Blood Urea Nitrogen < 5 mg/dL (9-23)
--- NOTE | 2024-07-02 13:50 | DVHPN2 ---
Progress Note - Dictate Date Seen: Jul 02, 2024 Medical Necessity Reason Pt with a Central, PICC or Fol: No Subjective Tolerating full liquid diet. Ambulating in the hallways. Feels better. Had a bowel movement this afternoon. vital signs Vital Sign Date Time Temp Pulse Resp B/P (MAP) Pulse Ox O2 Delivery O2 Flow Rate FiO2 07/02/24 13:00 98.1 61 19 135/63 (87) 90 98.1 07/02/24 10:00 Nasal Cannula 3.0 07/02/24 10:00 32 Total Intake and Output 07/01/24 07/01/24 07/02/24 15:00 23:00 07:00 Intake Total 650 ml 960 ml Output Total 75 ml 60 ml Balance 575 ml 900 ml medications Current Medications Medications Dose Ordered Sig/Sidra Route Start Time Stop Time Status Last Admin Dose Admin Nitroglycerin 0.4 mg Q5MINP PRN SL 06/27/24 18:15 Morphine Sulfate 2 mg Q30M PRN IV 06/27/24 18:15 Morphine Sulfate 3 mg Q3HPRN PRN IV 06/27/24 18:15 07/01/24 03:55 3 MG Morphine Sulfate 2 mg Q4HPRN PRN IV 06/27/24 18:15 Hold 06/30/24 03:57 2 MG Ondansetron HCl 4 mg Q4HPRN PRN IV 06/27/24 18:15 07/01/24 15:58 4 MG Hydralazine HCl 10 mg Q6HP PRN IV 06/27/24 18:15 Metoprolol Tartrate 25 mg BID PO 06/27/24 22:00 07/02/24 09:03 25 MG Acetaminophen 650 mg Q4HP PRN PO 06/27/24 18:15 07/01/24 15:58 650 MG Levothyroxine Sodium 75 mcg QAM@0600 PO 06/28/24 06:00 07/02/24 05:27 75 MCG Atorvastatin Calcium 20 mg HS PO 06/27/24 22:00 07/01/24 21:53 20 MG Acetaminophen/ Hydrocodone Bitart 1 tab Q4HPRN PRN PO 06/30/24 15:00 07/02/24 03:48 1 TAB Metoclopramide HCl 10 mg Q8HPRN PRN IV 07/01/24 03:30 07/01/24 03:43 10 MG Acetylcysteine 200 mg Q6HR PRN NEB 07/01/24 16:15 Albuterol 2.5 mg Q6HR PRN NEB 07/01/24 16:15 Amoxicillin/ Clavulanate Potassium 500 mg BID PO 07/02/24 22:00 objective Alert awake oriented x3. HEENT neck supple no JVD. Heart regular rate and rhythm S1-S2. Lungs without rales wheezes. Abdomen obese, soft positive bowel sounds with the abdominal binder. DHEERAJ drain present in the lower abdomen. Extremities no edema. 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 Continue supportive care and treatment. For admitting management for clinical course and recommendations from the surgeon. Discussed with the patient regarding care plan. Problems(with codes): (1) Hypertension (2) Acute appendicitis Plan discussed with: Patient SHARON BURRELL MD Jul 02, 2024 13:50
[2024-07-02] MEDS: POTASSIUM EFFERVESENT TAB 25 MEQ PO ONE (16:17)
--- NOTE | 2024-07-02 19:11 | DVHPN2 ---
Progress Note Date Seen: Jul 02, 2024 Medical Necessity Reason Pt with a Central, PICC or Fol: No Objective vital signs Vital Sign Date Time Temp Pulse Resp B/P (MAP) Pulse Ox O2 Delivery O2 Flow Rate FiO2 07/02/24 17:00 98.4 60 18 110/56 (74) 99 98.4 07/02/24 10:00 Room Air 07/02/24 10:00 21 Total Intake and Output 07/01/24 07/01/24 07/02/24 15:00 23:00 07:00 Intake Total 650 ml 960 ml Output Total 75 ml 60 ml Balance 575 ml 900 ml medications Current Medications Medications Dose Ordered Sig/Sidra Route Start Time Stop Time Status Last Admin Dose Admin Nitroglycerin 0.4 mg Q5MINP PRN SL 06/27/24 18:15 Morphine Sulfate 2 mg Q30M PRN IV 06/27/24 18:15 Morphine Sulfate 3 mg Q3HPRN PRN IV 06/27/24 18:15 07/01/24 03:55 3 MG Morphine Sulfate 2 mg Q4HPRN PRN IV 06/27/24 18:15 Hold 06/30/24 03:57 2 MG Ondansetron HCl 4 mg Q4HPRN PRN IV 06/27/24 18:15 07/01/24 15:58 4 MG Hydralazine HCl 10 mg Q6HP PRN IV 06/27/24 18:15 Metoprolol Tartrate 25 mg BID PO 06/27/24 22:00 07/02/24 09:03 25 MG Acetaminophen 650 mg Q4HP PRN PO 06/27/24 18:15 07/01/24 15:58 650 MG Levothyroxine Sodium 75 mcg QAM@0600 PO 06/28/24 06:00 07/02/24 05:27 75 MCG Atorvastatin Calcium 20 mg HS PO 06/27/24 22:00 07/01/24 21:53 20 MG Acetaminophen/ Hydrocodone Bitart 1 tab Q4HPRN PRN PO 06/30/24 15:00 07/02/24 18:22 1 TAB Metoclopramide HCl 10 mg Q8HPRN PRN IV 07/01/24 03:30 07/01/24 03:43 10 MG Acetylcysteine 200 mg Q6HR PRN NEB 07/01/24 16:15 Albuterol 2.5 mg Q6HR PRN NEB 07/01/24 16:15 Amoxicillin/ Clavulanate Potassium 500 mg BID PO 07/02/24 22:00 laboratory and microbiology Laboratory Tests 07/02/24 06:23 Test 07/02/24 06:23 Range/Units Serum Glucose 84 74-106 mg/dL Problem List/Assessment/Plan Problem List/Assessment/Plan AFEBRILE VSS WOUNDS HEALING NO COMPLICATIONS DRAIN 60 CC SEROSANGUINEOUS GUS SOFT DIET STABLE IV ABX Plan discussed with: Patient LIZ LOZANO MD Jul 02, 2024 19:11
[2024-07-02] MEDS: AMOXICILLIN/CLAVULAN 500 MG TAB PO SCH (22:00)
[2024-07-03] VITALS (9 sets, daily range): BP systolic 125–137; BP diastolic 74–75; PULSE 59–94; RESP 16–18; TEMP 97.6–98.3; O2SAT 89–95
[2024-07-03] MEDS ORDERED: HYDR-4902 PO (12:54)
[2024-07-03] MEDS ORDERED: AMOX500T86 PO (12:54)
[2024-07-03] MEDS ORDERED: SENN-105 PO (12:54)
[2024-07-03] MEDS ORDERED: NALO4SPR2 (12:54)
--- NOTE | 2024-07-03 12:58 | DVHDS2 ---
Discharge Summary Date of Admission Jun 27, 2024 at 18:07 Date of Discharge: Jul 03, 2024 Labs/Diagnostic Data: Laboratory Results Test 07/02/24 06:23 06/27/24 22:11 06/27/24 10:41 06/27/24 10:25 White Blood Count 8.3 10^3/uL (4.4-10.8) Red Blood Count 4.10 10^6/uL (4.0-5.20) Hemoglobin 12.2 g/dL (12.2-16.2) Hematocrit 37.1 % (36.0-46.0) Mean Corpuscular Volume 90.4 fL (80.0-100.0) Mean Corpuscular Hemoglobin 29.8 pg (28.0-32.0) Mean Corpuscular Hemoglobin Concent 33.0 g/dL (32.0-36.0) Red Cell Distribution Width 13.6 % (11.8-14.3) Platelet Count 255 10^3/uL (140-450) Mean Platelet Volume 9.2 fL (6.9-10.8) Neutrophils (%) (Auto) 71.6 % (37.0-80.0) Lymphocytes (%) (Auto) 17.9 % (10.0-50.0) Monocytes (%) (Auto) 6.3 % (0.0-12.0) Eosinophils (%) (Auto) 3.7 % (0.0-7.0) Basophils (%) (Auto) 0.5 % (0.0-2.0) Neutrophils # (Auto) 5.9 10 ^3/uL (1.6-8.6) Lymphocytes # (Auto) 1.5 10 ^3/uL (0.4-5.4) Monocytes # (Auto) 0.5 10 ^3/uL (0-1.3) Eosinophils # (Auto) 0.3 10 ^3/uL (0-0.8) Basophils # (Auto) 0 10 ^3/uL (0-0.2) Nucleated Red Blood Cells 0.0 % Sodium Level 142 mmol/L (136-145) Potassium Level 3.4 mmol/L (3.5-5.1) Chloride Level 104 mmol/L (98-107) Carbon Dioxide Level 27 mmol/L (20-31) Anion Gap 11 (5-15) Blood Urea Nitrogen < 5 mg/dL (9-23) Creatinine 0.68 mg/dL (0.550-1.02) Glomerular Filtration Rate Calc 100 mL/min (>90) BUN/Creatinine Ratio 7.4 (10.0-20.0) Serum Glucose 84 mg/dL (74-106) Calcium Level 9.9 mg/dL (8.7-10.4) Prothrombin Time 11.7 sec (9.3-11.8) Prothrombin Time INR 1.12 (0.9-1.15) Activated Partial Thromboplast Time 31.5 SEC (24.5-34.5) Urine Color Yellow (Yellow) Urine Clarity Clear (Clear) Urine pH 6.0 (5.0-9.0) Urine Specific [place] 1.019 (1.001-1.035) Urine Protein Trace (Negative) Urine Ketones Negative (Negative) Urine Blood 2+ /uL (Negative) Urine Nitrite Negative (Negative) Urine Bilirubin Negative (Negative) Urine Urobilinogen Normal mg/dL (Negative) Urine Leukocyte Esterase Trace /uL (Negative) Urine RBC 3 /hpf (0 - 4) Urine Microscopic WBC 5 /HPF (0-5) Urine Squamous Epithelial Cells Few /hpf (<5) Urine Bacteria None seen /hpf (None Seen) Urine Glucose Normal mg/dL (Normal) Total Bilirubin 0.7 mg/dL (0.2-1.0) Aspartate Amino Transferase (AST) 17 U/L (13-40) Alanine Aminotransferase (ALT) 27 U/L (7-40) Alkaline Phosphatase 74 U/L (46-116) Total Protein 7.6 g/dL (5.7-8.2) Albumin 4.8 g/dL (3.2-4.8) Lipase 38 U/L (12-53) Other Laboratory Tests 07/02/24 06:23 Brief Hx & Hospital Course: A 58 YEAR OLD FEMALE PRESENTS TO THE ED WITH COMPLAINT OF RIGHT-SIDED ABDOMINAL PAIN RADIATES TO LOWER BACK. PATIENT STATES SHE HAS BEEN EXPERIENCING RIGHT- SIDED ABDOMINAL PAIN THAT OCCASIONALLY RADIATES TO HER EPIGASTRIC REGION AND HER LOWER BACK FOR THE PAST 2 DAYS. PATIENT REPORTS SHE HAS ALSO HAD NAUSEA AND DIARRHEA WITH HER ABDOMINAL PAIN. PATIENT DENIES DYSURIA, HEMATURIA, FLANK PAIN, FEVER, CHILLS, SHORTNESS OF BREATH, CHEST PAIN, VOMITING, HEADACHE, OR OTHER COMPLAINTS. NO OTHER SYMPTOMS OR MODIFYING FACTORS AT THIS TIME. PATIENT IS ALERT, ORIENTED X 4, AND HAS STEADY GAIT. NO OTHER SYMPTOMS REPORTED AT THIS TIME OF CARE. Is evaluated in the ER for her complaints noted to have a acute appendicitis. Therefore on-call surgeon is consulted who is planning on doing surgery however asked to hospitalist to admit overnight and to keep her NPO after midnight. Therefore I have evaluated the patient and admitting to medical service and to proceed with surgery per General surgery recommendations. Patient underwent successful appendectomy and postop recovery was uneventful. Patient is still has a drainage through her DHEERAJ drain. Patient therefore is being sent home with DHEERAJ drain and advised to follow up in Dr. Pennington office to remove the drain in one week. While in the hospital patient is tolerating her diet. Out of bed ambulating. Pain is improved/resolved. Patient given instructions on emptying her DHEERAJ drain care. Given overall patient's symptoms resolved clinically back to baseline normal status days felt she could be safely discharged home. I have talked with the patient regarding her hospital diagnosis, treatment she received, discharge medications, discharge instructions and follow-up plan of care. She has verbalized understanding of these and agree with the care plan as outlined Consults/Reason for consult APPROVED REPORT EXAM: Two-dimensional and M-mode echocardiogram with Doppler and color Doppler. Blood Pressure: 131/68 mmHg INDICATION Hypertension RISK FACTORS Obesity: Height: 5'7", Weight: 246 DIMENSIONS LVDd 4.6 (3.8-5.7cm) LA (2D) (1.9-4.0cm) Aortic Root 3.8 (2.0- 3.7cm) LVDs 3.2 (2.5-4.0cm) LA (MM) (1.9-4.0cm) Aortic Cusp Exc 2.2 (1.5- 2.0cm) EF (%) 60.0 (55-70%) Rt. Atrium (1.9-4.0cm) Asc. Aorta cm IVSd 0.9 (0.7-1.1cm) RV (D) (1.8-2.4cm) PWd 1.0 (0.7-1.1cm) Mitral Valve Mitral Mitral Stenosis E wave 0.94m/s MV Mean GR. mmHg A wave 0.87m/s MV Peak GR. mmHg E/A ratio 1.1 2D MVA cm2 DECEL Time 186ms PRESS 1/2 Time ms Aortic Valve Aortic Valve Aortic Stenosis V1 1.23m/s AO Mean GR. 3mmHg V2 1.30m/s AO Peak GR. 7mmHg LVOT Diameter 2.2 (1.8-2.4cm) Doppler JOHN 3.59cm2 Pulmonic Valve V2 0.97m/s Other Information Technically limited study due to body habitus, s/p surgery with abdominal band. Conclusion LV EJECTION FRACTION IS 65% NORMAL VALVES NORMAL RV FUNCTION NO EFFUSION SIGNED BY: CYNTHIA JAIN MD SIGNED DATE/TIME: 06/29/24 1765 Operations or Procedures Operative Report [id number] AC APPENDICITIS DENSE INTRAABD ADHESIONS INTRAABD ABSCESS LAP COLIN DRAINAGE INTRAABD ABSCESS LAP APPENDECTOMY EBL 25 CC ONE DRAIN NO COMPLICATIONS OCTAVIO PENNINGTON MD Jun 28, 2024 16:10 DICTATED BY:OCTAVIO PENNINGTON MD Condition at Discharge: Stable Final Diagnosis/Problems List AC APPENDICITIS DENSE INTRAABD ADHESIONS INTRAABD ABSCESS LAP COLIN DRAINAGE INTRAABD ABSCESS LAP APPENDECTOMY Discharge Disposition: Home Discharge Instruct/Medications Diet: Consistent carbohydrate, Cardiac 2g Na,low cholest Activity: No Restrictions, As Tolerated Follow Up/Referral: Dr. Octavio Pennington surgeon next week either on Sunday or Sunday to remove the DHEERAJ drain and Postop surgery evaluation. Medications: As prescribed and home medications for discharge med reconciliation list New Medications: Amoxicillin & Pot Clavulanate (Augmentin) 500 Mg Tab 1 TAB PO BID, #10 TAB Hydrocodone-Acetaminophen (Hydrocodone Bitartrate/AC 5-325 mg) 1 Tab Tab 1 TAB PO Q4HPRN PRN, #14 TAB Naloxone HCl (Narcan) 4 Mg/0.1 Ml Spr 4 MG NA Q5MINP PRN, #1 SPRAY Senna (Senna) 8.6 Mg Tab 8.6 MG PO HS, #14 TAB Continued Medications: Amlodipine Besylate (Norvasc Tablet) 5 Mg Tb 1 TAB PO DAILY, #30 TAB 5 Refills Atorvastatin Calcium (Lipitor) 10 Mg Tab 1 TAB PO QPM, #90 TAB 3 Refills Gabapentin (Gabapentin) 300 Mg Cap 400 MG PO TID for 30 Days, MG Levothyroxine Sodium (Levothyroxine Sodium) 50 Mcg Cap 50 MCG PO DAILY, CAP Losartan Potassium & Hydrochlo (Losartan Potassium/Hydroc) 1 Tab Tab 1 TAB PO DAILY, #30 TAB 5 Refills Metoprolol Tartrate (Metoprolol Tartrate) 50 Mg Tab 50 MG PO DAILY for 30 Days, MG Pantoprazole Sodium Sesquihydr (Pantoprazole Sodium Dr) 40 Mg Tab 20 MG PO DAILY, TAB Discontinued Medications: Bismuth Subsalicylate (Pepto-Bismol To-Go) 262 Mg Chw 262 MG PO QID for 5 Days, #20 TAB.CHEW Cyclobenzaprine Hcl (Cyclobenzaprine Hcl) 10 Mg Tab 5 MG PO DAILY for 30 Days, MG Doxycycline Hyclate (Doxycycline Hyclate) 100 Mg Tab 100 MG PO BID, #6 TAB Gabapentin (Gabapentin) 300 Mg Cap 300 MG PO DAILY@BREAKFAST for 30 Days, MG Levothyroxine Sodium (Levothyroxine Sodium) 50 Mcg Tab 50 MCG PO QAM for 30 Days, MCG Losartan Potassium (Losartan Potassium) 50 Mg Tab 50 MG PO DAILY for 30 Days, MG Metoclopramide Hcl (Reglan) 10 Mg Tab 10 MG PO BID for 5 Days, #10 TAB Discharge Statement: "Patient was advised to return to the ER or call 911 if any headaches, dizziness, shortness of breath, chest pain, abdominal pain, bleeding, fevers, or worsening of medical condition. Patient was counseled about treatment plan, medications, possible side effects, patientverbalized understanding. All questions were answered to the best of my ability. This discharge took greater then 30 minutes in planning, reviewing documentation, counseling the patient, and discussing with other team members." ASSESSMENT ASSESSMENT Assessment AC APPENDICITIS DENSE INTRAABD ADHESIONS INTRAABD ABSCESS LAP COLIN DRAINAGE INTRAABD ABSCESS LAP APPENDECTOMY SHARON BURRELL MD Jul 03, 2024 12:58
== END 2024-07-03 16:48 | disposition home or self-care (01) | DRG 710 ==
LOC: ER 09:37 → TELE 18:07 → TELE-WESTW 06-28 18:23 → TELE 07-01 15:51 → WEST WING 07-01 16:05 → OVERFLOW 07-02 13:25 → TELE-WESTW 07-02 13:43 → WEST WING 07-02 23:59
PROVIDERS: ADMIT Hospitalist; ATTEND Hospitalist
PROC: 0DNW4ZZ Release Peritoneum, Percutaneous Endoscopic Approach (ICD-10-PCS; 2024-06-28)
PROC: 0W9G40Z Drainage of Peritoneal Cavity with Drainage Device, Percutaneous Endoscopic Approach (ICD-10-PCS; 2024-06-28)
PROC: 0DTJ4ZZ Resection of Appendix, Percutaneous Endoscopic Approach (ICD-10-PCS; principal; 2024-06-28 14:42)
DX: A41.9 Sepsis, unspecified organism (principal); K35.33 Acute appendicitis with perforation, localized peritonitis, and gangrene, with abscess; I10 Essential (primary) hypertension; Z82.49 Family history of ischemic heart disease and other diseases of the circulatory system; Z90.710 Acquired absence of both cervix and uterus
CPT/HCPCS: 36415; 71046; 74176; 80048; 80053; 81001; 83690; 85025; 85610; 85730; 93005; 93306; 94640; 96361; 96365; 96375; 97110; 97116; 97163; 97530; G0378; J2003; J2250; J2405; J2543; J2704; J3490